=== PATIENT | female | born 1940 | race Caucasian/White ===

== ENCOUNTER 2020-08-01 02:04 | Inpatient (IN) | payer MEDICARE, OTHER ==
[2020-08-01] VITALS (10 sets, daily range): BP systolic 110–171; BP diastolic 50–79
[~2020-08-01] VITALS: Ht 175.3 cm; Wt 64.1 kg
[~2020-08-01 02:04] MED LIST: ALPR0.25 PO; AMLO10TA4 PO; ATOR10TA PO; LEVE100020 PO; PHEN100C PO; PROP80CA3 PO
--- NOTE | 2020-08-01 02:28 | ED.ADGEN ---
Past Medical History Past Medical History: Hypertension, Seizure Past Surgical History: No Surgical History Smoking Status: Never Smoker Alcohol Use: None Drug Use: None General Adult EDM: Chief Complaint: TRAUMA ALERT HPI: HPI: Patient is a 79-year-old female who presents to the emergency room after a fall. Patient fell over her end table due to slipping on her socks. She denies any syncope. She denies hitting her head. She denies losing consciousness or neck pain. She is complaining of mild for out of 10 elbow pain on the left. She denies any other pain. She has been able to move her fingers but is unable to move her elbow. She denies any numbness in her hand. Review of Systems: Review of Systems: Complete ROS is negative unless otherwise documented in HPI Allergies: Allergies: Allergies Coded Allergies Type Severity Reaction Last Updated Verified No Known Drug Allergies 10/11/14 No Physical Exam: PE: General: Awake, alert, NAD. Well Nourished, well hydrated. Cooperative HEENT: Atraumatic, EOMI, PERRL, airway patent, moist oral mucosa, no nasal septal hematoma, no facial crepitus or deformity Neck: Supple, trachea midline, no C-spine tenderness Respiratory: CTA bilaterally, normal effort, no wheezing/crackles, no crepitus CV: RRR, no murmur, cap refill <2, 2+ bilateral radial/DP pulses GI: Soft, nondistended, nontender, no masses MSK: Obvious deformity to left upper arm, pelvis stable and nontender Skin: Warm, dry, intact Neuro: A&O x3, speech NL, sensory and motor grossly intact, no focal deficits Psych: Normal affect, normal mood, not suicidal or homicidal Current Patient Data: Labs: Laboratory Tests Test 08/01/20 04:00 White Blood Count 9.7 x10^3/uL (4.0-11.0) Red Blood Count 3.30 x10^6/uL (3.50-5.40) L Hemoglobin 10.1 g/dL (12.0-15.5) L Hematocrit 30.4 % (36.0-47.0) L Mean Corpuscular Volume 92 fL (79-100) Mean Corpuscular Hemoglobin 31 pg (25-35) Mean Corpuscular Hemoglobin Concent 33 g/dL (31-37) Red Cell Distribution Width 14.6 % (11.5-14.5) H Platelet Count 278 x10^3/uL (140-400) Neutrophils (%) (Auto) 77 % (31-73) H Lymphocytes (%) (Auto) 10 % (24-48) L Monocytes (%) (Auto) 11 % (0-9) H Eosinophils (%) (Auto) 1 % (0-3) Basophils (%) (Auto) 0 % (0-3) Neutrophils # (Auto) 7.5 x10^3/uL (1.8-7.7) Lymphocytes # (Auto) 0.9 x10^3/uL (1.0-4.8) L Monocytes # (Auto) 1.1 x10^3/uL (0.0-1.1) Eosinophils # (Auto) 0.1 x10^3/uL (0.0-0.7) Basophils # (Auto) 0.0 x10^3/uL (0.0-0.2) Sodium Level 140 mmol/L (136-145) Potassium Level 3.8 mmol/L (3.5-5.1) Chloride Level 107 mmol/L (98-107) Carbon Dioxide Level 25 mmol/L (21-32) Anion Gap 8 (6-14) Blood Urea Nitrogen 16 mg/dL (7-20) Creatinine 0.9 mg/dL (0.6-1.0) Estimated GFR (Cockcroft-Gault) 60.4 Glucose Level 79 mg/dL (70-99) Calcium Level 8.9 mg/dL (8.5-10.1) Iron Level 41 ug/dL (50-170) L Total Iron Binding Capacity 232 ug/dL (250-450) L Iron Saturation 18 % (15-34) Thyroid Stimulating Hormone (TSH) 2.134 uIU/mL (0.358-3.74) SARS-CoV-2 Antigen (Rapid) Negative (NEGATIVE) Laboratory Tests 08/01/20 04:00 Laboratory Tests 08/01/20 04:00 Vital Signs: Vital Signs Date Time Temp Pulse Resp B/P (MAP) Pulse Ox O2 Delivery O2 Flow Rate FiO2 08/01/20 05:42 68 16 133/60 (84) 100 Nasal Cannula 2.0 08/01/20 02:16 98.0 98.0 EKG: EKG: [] Heart Score: Risk Factors: Risk Factors: DM, Current or recent (<one month) smoker, HTN, HLP, family history of CAD, obesity. Risk Scores: Score 0 - 3: 2.5% MACE over next 6 weeks - Discharge Home Score 4 - 6: 20.3% MACE over next 6 weeks - Admit for Clinical Observation Score 7 - 10: 72.7% MACE over next 6 weeks - Early Invasive Strategies Radiology/Procedures: Radiology/Procedures: [] Course & Med Decision Making: Course & Med Decision Making Pertinent Labs and Imaging studies reviewed. (See chart for details) Patient is a 79-year-old female who presents to the emergency room after a fall from standing. She has an obvious deformity to her left upper arm. She denies any other injuries. Patient discussed with Dr. Love the on-call orthopedic surgeon. A rapid Covid swab was done and patient will be admitted for surgery. Dragon Disclaimer: Dragon Disclaimer: This electronic medical record was generated, in whole or in part, using a voice recognition dictation system. Departure Departure Impression: Primary Impression: Fall Additional Impression: Humerus distal fracture Disposition: ADMITTED INPT THIS HOSP Condition: STABLE Referrals: ZUNILDA CORNELIUS MD (PCP) Problem Qualifiers ALBERTO NINA MD Aug 01, 2020 02:28
--- NOTE | 2020-08-01 03:02 | RAD ---
INDICATION: Arm pain COMPARISON: Chest x-ray from October 2019 IMPRESSION: Left humerus: 5 views obtained. There is an acute left distal humerus fracture with approximately one shaft width lateral displacement with apex lateral angulation and mild overriding of the fracture si te. At the partially visualized left lung there is interstitial opacities as well as a more focal nod ular opacity at the left lung base. The interstitial opacities are partially chronic in nature but ap pear increased from prior which could be from superimposed interstitial infiltrate or mild pulmonary vascular congestion. The nodular opacity at the left lung base could be infectious or inflammatory bu t a follow-up will be needed to ensure that this decreases in severity to exclude neoplastic causes. This was not apparent on prior. Electronically signed by: Janusz Bonilla MD (08/01/2020 2:59 AM) [id number]
[2020-08-01 04:23] LABS: BASO % 0 % (0-3); EOS # 0.1 x10^3/uL (0.0-0.7); EOS % 1 % (0-3); HEMATOCRIT 30.4 % (36.0-47.0); HEMOGLOBIN 10.1 g/dL (12.0-15.5); LYMPH # 0.9 x10^3/uL (1.0-4.8); LYMPH % 10 % (24-48); MEAN CORPUSCULAR HEMOGLOBIN 31 pg (25-35); MEAN CORPUSCULAR HGB CONC 33 g/dL (31-37); MEAN CORPUSCULAR VOLUME 92 fL (79-100); MONO # 1.1 x10^3/uL (0.0-1.1); MONO % 11 % (0-9); NEUT # 7.5 x10^3/uL (1.8-7.7); NEUT % 77 % (31-73); PLATELET COUNT 278 x10^3/uL (140-400); RED CELL DISTRIBUTION WIDTH 14.6 % (11.5-14.5); WHITE BLOOD COUNT 9.7 x10^3/uL (4.0-11.0)
[2020-08-01 04:32] LABS: CALCIUM 8.9 mg/dL (8.5-10.1); CREATININE 0.9 mg/dL (0.6-1.0); GFR 60.4; POTASSIUM 3.8 mmol/L (3.5-5.1)
--- NOTE | 2020-08-01 07:21 | PDOC1 ---
History and Physical Date of Admission Date of Admission DATE: 08/01/20 TIME: 07:17 Identification/Chief Complaint Chief Complaint Fall Source Source: Patient History of Present Illness History of Present Illness Ms Mckinley is a 79-year-old female w/ PMHx Hypertension, Seizures who presents to the emergency room after a fall at her SNF, [facility]. Patient fell over her end table due to slipping on her socks at the carpet transition. She denies any syncope. She denies hitting her head. She denies losing consciousness or neck pain. She was complaining of mild 4/10 elbow pain on the left which resolved with pain medication and immobilization. She denies any other pain. She has been able to move her fingers but is unable to move her elbow. She denies any numbness in her hand. She was diagnosed with COVID 19 on 07/12/2020 at [facility]. On radiograph found with acute left distal humerus fracture with approximately one shaft width lateral displacement with apex lateral angulation and mild overriding of the fracture site. Also notable are interstitial opacities as well as a more focal nodular opacity at the left lung base. Labs with WBC 9.7, Hb 10.1, platelets 278, NA 140, K3.8, BUN 16, CR 0.9, glucose 129. Due to ED physician concern for close proximity of bone scan in ED splinting was not performed and there awaiting orthopedic surgery evaluation for further care. Patient of note says she would not like to have surgery to correct this if there is something more conservative she would prefer this. Admitted for pain control and further care. Past Medical History Cardiovascular: HTN CENTRAL NERVOUS SYSTEM: Seizure GI: No pertinent hx Heme/Onc: No pertinent hx Hepatobiliary: No pertinent hx Psych: No pertinent hx Musculoskeletal: Osteoarthritis Rheumatologic: No pertinent hx Infectious disease: No pertinent hx Renal/: No pertinent hx Endocrine: No pertinent hx Past Surgical History Past Surgical History: Tonsillectomy Family History Family History: Hypertension Social History Smoke: No ALCOHOL: none Drugs: None Current Problem List Problem List Problems Medical Problems: (1) Fall Status: Acute Current Medications Current Medications Active Scripts Active Xanax (Alprazolam) 0.25 Mg Tablet 0.25 Mg PO TID PRN PRN Lipitor (Atorvastatin Calcium) 10 Mg Tablet 1 Tab PO QHS Norvasc (Amlodipine Besylate) 10 Mg Tablet 5 Mg PO DAILY PRN Reported Keppra (Levetiracetam) 1,000 Mg Tablet 1 Tab PO BID Dilantin (Phenytoin Sodium Extended) 100 Mg Capsule 300 Mg PO HS Allergies Allergies: Coded Allergies: No Known Drug Allergies (Unverified , 10/11/14) ROS General: YES: Fatigue, Malaise; No: Chills, Night Sweats, Appetite, Other PSYCHOLOGICAL ROS: No: Anxiety, Behavioral Disorder, Concentration difficultie, Decreased libido, Depression, Disorientation, Hallucinations, Hostility, Irritablity, Memory difficulties, Mood Swings, Obsessive thoughts, Physical abuse, Sexual abuse, Sleep disturbances, Suicidal ideation, Other Eyes: No Blurry vision, No Decreased vision, No Double vision, No Dry eyes, No Excessive tearing, No Eye Pain, No Itchy Eyes, No Loss of vision, No Photophobia, No Scotomata, No Uses contacts, No Uses glasses, No Other HEENT: No: Heacaches, Visual Changes, Hearing change, Nasal congestion, Nasal discharge, Oral lesions, Sinus pain, Sore Throat, Epistaxis, Sneezing, Snoring, Tinnitus, Vertigo, Vocal changes, Other ALLERGY AND IMMUNOLOGY: No: Hives, Insect Bite Sensitivity, Itchy/Watery Eyes, Nasal Congestion, Post Nasal Drip, Seasonal Allergies, Other Hematological and Lymphatic: No: Bleeding Problems, Blood Clots, Blood Transfusions, Brusing, Night Sweats, Pallor, Swollen Lymph Nodes, Other ENDOCRINE: No: Breast Changes, Galactorrhea, Hair Pattern Changes, Hot Flashes, Malaise/lethargy, Mood Swings, Palpitations, Polydipsia/polyuria, Skin Changes, Temperature Intolerance, Unexpected Weight Changes, Other Breast: No New/Changing Breast Lumps, No Nipple changes, No Nipple discharge, No Other Respiratory: YES: Cough, Shortness of breath; No: Hemoptysis, Orthopnea, Pleuritic Pain, SOB with excertion, Sputum Changes, Stridor, Tachypnea, Wheezing, Other Cardiovascular: No Chest Pain, No Palpitations, No Orthopnea, No Paroxysmal Noc. Dyspnea, No Edema, No Lt Headedness, No Other Gastrointestinal: No Nausea, No Vomiting, No Abdominal Pain, No Diarrhea, No Constipation, No Melena, No Hematochezia, No Other Genitourinary: No Dysuria, No Frequency, No Incontinence, No Hematuria, No Retention, No Discharge, No Urgency, No Pain, No Flank Pain, No Other, No , No , No , No , No , No , No Musculoskeletal: No Gait Disturbance, No Joint Pain, No Joint Stiffness, No Joint Swelling, No Muscle Pain, No Muscular Weakness, No Pain In:, No Swelling In:, No Other Neurological: No Behavorial Changes, No Bowel/Bladder ControlChng, No Confusion, No Dizziness, No Gait Disturbance, No Headaches, No Impaired Coord/balance, No Memory Loss, No Numbness/Tingling, No Seizures, No Speech Problems, No Tremors, No Visual Changes, No Weakness, No Other Skin: No Dry Skin, No Eczema, No Hair Changes, No Lumps, No Mole Changes, No Mottling, No Nail Changes, No Pruritus, No Rash, No Skin Lesion Changes, No Other, No Acne Physical Exam General: Alert, Oriented X3, Cooperative, mild distress HEENT: Atraumatic, PERRLA, EOMI, Mucous membr. moist/pink Lungs: Normal air movement, Other (Bibasilar crackles) Heart: S1S2, RRR, no thrills, no rubs, no gallops, no murmurs Abdomen: Normal bowel sounds, Soft, No tenderness, No hepatosplenomegaly, No masses Rectal Exam: not examined Extremities: No clubbing, No cyanosis, No edema, Normal pulses, Other (left upper arm tender) Skin: No rashes, No breakdown, No significant lesion Neuro: Normal gait, Normal speech, Strength at 5/5 X4 ext, Normal tone, Sensation intact, Cranial nerves 3-12 NL, Reflexes 2+ Psych/Mental Status: Mental status NL, Mood NL Vitals Vitals Vital Signs Date Time Temp Pulse Resp B/P (MAP) Pulse Ox O2 Delivery O2 Flow Rate FiO2 08/01/20 06:42 68 15 108/58 (75) 99 Nasal Cannula 2.0 08/01/20 02:16 98.0 98.0 Labs Labs Laboratory Tests Test 08/01/20 04:00 White Blood Count 9.7 x10^3/uL (4.0-11.0) Red Blood Count 3.30 x10^6/uL (3.50-5.40) Hemoglobin 10.1 g/dL (12.0-15.5) Hematocrit 30.4 % (36.0-47.0) Mean Corpuscular Volume 92 fL (79-100) Mean Corpuscular Hemoglobin 31 pg (25-35) Mean Corpuscular Hemoglobin Concent 33 g/dL (31-37) Red Cell Distribution Width 14.6 % (11.5-14.5) Platelet Count 278 x10^3/uL (140-400) Neutrophils (%) (Auto) 77 % (31-73) Lymphocytes (%) (Auto) 10 % (24-48) Monocytes (%) (Auto) 11 % (0-9) Eosinophils (%) (Auto) 1 % (0-3) Basophils (%) (Auto) 0 % (0-3) Neutrophils # (Auto) 7.5 x10^3/uL (1.8-7.7) Lymphocytes # (Auto) 0.9 x10^3/uL (1.0-4.8) Monocytes # (Auto) 1.1 x10^3/uL (0.0-1.1) Eosinophils # (Auto) 0.1 x10^3/uL (0.0-0.7) Basophils # (Auto) 0.0 x10^3/uL (0.0-0.2) Sodium Level 140 mmol/L (136-145) Potassium Level 3.8 mmol/L (3.5-5.1) Chloride Level 107 mmol/L (98-107) Carbon Dioxide Level 25 mmol/L (21-32) Anion Gap 8 (6-14) Blood Urea Nitrogen 16 mg/dL (7-20) Creatinine 0.9 mg/dL (0.6-1.0) Estimated GFR (Cockcroft-Gault) 60.4 Glucose Level 79 mg/dL (70-99) Calcium Level 8.9 mg/dL (8.5-10.1) SARS-CoV-2 Antigen (Rapid) Negative (NEGATIVE) Laboratory Tests Test 08/01/20 04:00 White Blood Count 9.7 x10^3/uL (4.0-11.0) Red Blood Count 3.30 x10^6/uL (3.50-5.40) Hemoglobin 10.1 g/dL (12.0-15.5) Hematocrit 30.4 % (36.0-47.0) Mean Corpuscular Volume 92 fL (79-100) Mean Corpuscular Hemoglobin 31 pg (25-35) Mean Corpuscular Hemoglobin Concent 33 g/dL (31-37) Red Cell Distribution Width 14.6 % (11.5-14.5) Platelet Count 278 x10^3/uL (140-400) Neutrophils (%) (Auto) 77 % (31-73) Lymphocytes (%) (Auto) 10 % (24-48) Monocytes (%) (Auto) 11 % (0-9) Eosinophils (%) (Auto) 1 % (0-3) Basophils (%) (Auto) 0 % (0-3) Neutrophils # (Auto) 7.5 x10^3/uL (1.8-7.7) Lymphocytes # (Auto) 0.9 x10^3/uL (1.0-4.8) Monocytes # (Auto) 1.1 x10^3/uL (0.0-1.1) Eosinophils # (Auto) 0.1 x10^3/uL (0.0-0.7) Basophils # (Auto) 0.0 x10^3/uL (0.0-0.2) Sodium Level 140 mmol/L (136-145) Potassium Level 3.8 mmol/L (3.5-5.1) Chloride Level 107 mmol/L (98-107) Carbon Dioxide Level 25 mmol/L (21-32) Anion Gap 8 (6-14) Blood Urea Nitrogen 16 mg/dL (7-20) Creatinine 0.9 mg/dL (0.6-1.0) Estimated GFR (Cockcroft-Gault) 60.4 Glucose Level 79 mg/dL (70-99) Calcium Level 8.9 mg/dL (8.5-10.1) SARS-CoV-2 Antigen (Rapid) Negative (NEGATIVE) Images Images Left humerus Radiograph: 5 views obtained. There is an acute left distal humerus fracture with approximately one shaft width lateral displacement with apex lateral angulation and mild overriding of the fracture site. At the partially visualized left lung there is interstitial opacities as well as a more focal nodular opacity at the left lung base. The interstitial opacities are partially chronic in nature but appear increased from prior which could be from superimposed interstitial infiltrate or mild pulmonary vascular congestion. The nodular opacity at the left lung base could be infectious or inflammatory but a follow-up will be needed to ensure that this decreases in severity to exclude neoplastic causes. This was not apparent on prior. VTE Prophylaxis Ordered VTE Prophylaxis Devices: Yes VTE Pharmacological Prophylaxi: Yes Assessment/Plan Assessment/Plan A/P: Fall - sounds accidental, no LOC. PT for gait assessment Left humerus fracture - pain control. Ortho consulted. Patient does not consent to surgery, would prefer splinting and conservative measures if possible COVID 19 - diagnosed 20 days ago. Does not currently require oxygen. Imaging consistent with likely infection vs recovery phase. Hypertension - cont home amlodipine Seizures - managed on dilantin and keppra. Follows with Dr. Keen. No recent seizures in the past several years Anemia - likely of chronic disease, will check iron studies, TSH FEN - NPO PPX - SCDs FULL CODE Dispo - inpatient Justifications for Admission Other Justification JOSE GUADALUPE PETIT MD Aug 01, 2020 07:21
[2020-08-01] MEDS ORDERED: fentaNYL PF VIAL 100 MCG/2 ML VIAL IVP PRN ×3 (08:00→16:00)
[2020-08-01] MEDS ORDERED: ONDANSETRON PF 4 MG/2 ML VIAL. IVP PRN ×2 (08:00→16:00)
[2020-08-01] MEDS: IV NORMAL SALINE 1000ML BAG 1,000 ML IV SCH ×2 (08:59→17:03)
[2020-08-01] MEDS ORDERED: IV RINGERS,LACTATED 1000ML 1,000 ML IV SCH (09:00)
[2020-08-01] MEDS ORDERED: MORPHINE SULFATE 2 MG/ML VIAL. IV PRN (09:00)
[2020-08-01] MEDS ORDERED: ONDANSETRON PF 4 MG/2 ML VIAL. IV PRN (09:00)
[2020-08-01] MEDS ORDERED: fentaNYL PF VIAL 100 MCG/2 ML VIAL IV PRN ×2 (09:00)
[2020-08-01] MEDS ORDERED: LIDOCAINE 1% PF 2 ML VIAL. ID PRN (09:00)
[2020-08-01] MEDS ORDERED: PROCHLORPERAZINE 10 MG/2 ML VIAL. IV PRN (09:00)
[2020-08-01] MEDS ORDERED: HYDROmorphone 2 MG/ML VIAL IV PRN (09:00)
[2020-08-01] MEDS ORDERED: BUPIVACAINE-EPI 0.25%-1:200000 MPF 30 ML VIAL. INJ ONE (12:15)
[2020-08-01] MEDS ORDERED: ceFAZolin SODIUM IV Push 1 GM VIAL. IVP ONE (13:08)
[2020-08-01] MEDS ORDERED: fentaNYL PF VIAL 100 MCG/2 ML VIAL ONE ×3 (13:15→15:20)
[2020-08-01] MEDS ORDERED: DEXAMETHASONE SOD PHOS 4 MG/ML VIAL ONE (13:32)
[2020-08-01] MEDS ORDERED: LIDOCAINE 2% PF 5 ML VIAL. ONE (13:32)
[2020-08-01] MEDS ORDERED: PHENYLEPHRINE in 0.9% NACL PF 1 MG/10 ML SYRINGE. IV ONE (13:32)
[2020-08-01] MEDS ORDERED: PROPOFOL 10 MG/ML (20ML) VIAL. IV ONE (13:32)
[2020-08-01] MEDS ORDERED: ONDANSETRON PF 4 MG/2 ML VIAL. ONE (13:32)
[2020-08-01] MEDS ORDERED: SEVOFLURANE 61 TO 120 MINUTES. IH ONE (13:33)
[2020-08-01] MEDS ORDERED: VANCOMYCIN 1 GM VIAL. ONE (14:55)
--- NOTE | 2020-08-01 15:51 | PDOC4 ---
Operative Note Operative Note Date of Procedure: August 01, 2020 Pre-Op Diagnosis: Displaced spiral fracture of shaft of humerus, left arm, initial encounter for closed fracture S42.342A Post-Op Diagnosis: Same Procedure: Open treatment of left humeral shaft fracture with plate/screws, CPT 41820 Surgeon: Sofya Brooks MD Anesthesia: Healthcare Science Specialist: NICOLAS Del Rosario EBL: 100 mL Specimens Obtained: none Complications: none Drains: none Tourniquet time: 62 minutes Indications for Procedure: The patient is a 79-year-old with a spiral fracture of the left distal humeral shaft which is displaced and unstable. The patient and I and her DPOA discussed the risks, benefits and alternatives of surgery. I recommended internal fixation. We discussed the potential risks of radial nerve injury, numbness, weakness, malunion or nonunion, need for further surgery, bleeding, scarring, infection, or other potential surgical or anesthetic comp lications. We discussed possible nonoperative treatment but I do recommend surgery for this fracture and he agrees. The patient and her DPOA stated understanding of the risks benefits and alternatives. A written consent was obtained. Procedure in Detail: The patient was identified in the preoperative holding area. The correct left upper extremity was marked by me. The patient was taken to the operating room where general anesthesia was used. The patient was positioned supine on the operating table. Preoperative antibiotics were given intravenously. A timeout procedure was performed. The limb was prepared in sterile fashion with surgical prep solution. Sterile drapes were applied. The lower part of the arm was covered with an impervious stockinette and Coban. A sterile tourniquet was applied. The limb was exsanguinated with an Esmarch bandage, and the tourniquet inflated to 275 mmHg. A modified anterolateral approach to the distal humeral shaft was employed. Sharp dissection was used through the skin with a scalpel, and then careful Metzenbaum scissor dissection was performed, with care made not to injure the radial nerve or the lateral antebrachial cutaneous nerve. The intermuscular septum was located distally, and dissected proximally. The radial nerve was identified, carefully dissected and mobilized, and protected throughout the surgery with a vessel loop. It was well mobilized to prevent radial nerve injury during reduction and fixation. The sharp fracture edges were quite close to the nerve but no apparent nerve injury had occurred. The interval between the brachioradialis and biceps was employed. Electrocautery was used for hemostasis. Care was made not to injure the radial nerve or the lateral antebrachial cutaneous nerve. The fracture was identified and was markedly displaced. Fracture hematoma was cleared with curettes, rongeurs, and irrigation. Careful subperiosteal dissection was used up the humerus. The fracture was held reduced with several bone clamps. Interfragmentary lag screw fixation was placed, with secure fixation of three screws. The reduction appeared anatomic. The large image intensifier was used to confirm the reduction. The image intensifier was used throughout the procedure, and all the images were interpreted intraoperatively by me. I applied a Synthes 4.5 mm stainless steel plate. A screw was placed to secure the plate to the bone. The image intensifier was used to confirm that satisfactory length of the plate and that the plate position was satisfactory. Additional screws were placed distally and proximally. Excellent rigid fixation was obtained. Final images were taken with the image intensifier. Satisfactory reduction and fixation was obtained. Copious saline irrigation was used. Outer gloves were changed. The tourniquet was released. Bovie electrocautery was used for hemostasis. 1 g of powdered vancomycin was placed in the deep wound. The fascia was repaired with 0 Vicryl [id number] sutures. My environmental emergencies assistant repaired the subcutaneous tissues with 2-0 Vicryl, and reapproximated the skin with stuart. Local anesthetic 30 mL of 0.25% bupivacaine with epinephrine was injected into the skin edges. Xeroform and a sterile dressing were applied. A posterior splint was applied. Needle and sponge counts were correct. There were no apparent complications. SOFYA BROOKS MD Aug 01, 2020 15:51
--- NOTE | 2020-08-01 15:56 | PDOC2 ---
CONSULT Date of Consult Date of Consult DATE: 08/01/20 TIME: 15:54 Reason for Consult Reason for Consult: Humeral shaft fracture Identification/Chief Complaint Chief Complaint Left humeral shaft fracture Source Source: Caregiver, Chart review, Patient History of Present Illness Reason for Visit: Late entry, the patient was seen this morning, and I recommended surgery. This patient is a 79-year-old woman who lives at home with her . She has some memory issues and her son is the MASOUD. She is right-handed. She was doing some housework and fell fracturing the humerus. X-rays showed a displaced humeral shaft fracture in the emergency room noted that the skin was tented by the sharp distal fragment but the fracture was not open. I spoke to the patient in detail about the risks benefits and alternatives of surgery. The fracture is markedly angulated and is tenting the skin and so in this case even with an isolated humeral shaft fracture I did recommend surgery. I explained my reasoning to the patient and to her son the MASOUD by phone. Past Medical History Cardiovascular: HTN CENTRAL NERVOUS SYSTEM: Seizure GI: No pertinent hx Heme/Onc: No pertinent hx Hepatobiliary: No pertinent hx Psych: No pertinent hx Musculoskeletal: Osteoarthritis Rheumatologic: No pertinent hx Infectious disease: No pertinent hx Renal/: No pertinent hx Endocrine: No pertinent hx Past Surgical History Past Surgical History: Tonsillectomy Family History Family History: Hypertension Social History No ALCOHOL: none Drugs: None Lives: with Family Current Problem List Problem List Problems Medical Problems: (1) Fall Status: Acute Current Medications Current Medications Current Medications Sodium Chloride 1,000 ml @ 100 mls/hr Q10H IV Last administered on 08/01/20at 08:59; Start 08/01/20 at 08:00 Fentanyl Citrate (Fentanyl 2ml Vial) 25 mcg PRN Q2HR PRN IVP PAIN; Start 08/01/20 at 08:00 Fentanyl Citrate (Fentanyl 2ml Vial) 50 mcg PRN Q2HR PRN IVP PAIN; Start 08/01/20 at 08:00 Ondansetron HCl (Zofran) 4 mg PRN Q6HRS PRN IVP NAUSEA/VOMITING; Start 08/01/20 at 08:00 Ondansetron HCl (Zofran) 4 mg PRN Q6HRS PRN IV NAUSEA/VOMITING; Start 08/01/20 at 09:00; Stop 08/01/20 at 18:00 Fentanyl Citrate (Fentanyl 2ml Vial) 25 mcg PRN Q5MIN PRN IV MILD PAIN 1-3 Last administered on 08/01/20at 09:00; Start 08/01/20 at 09:00; Stop 08/01/20 at 18:00 Fentanyl Citrate (Fentanyl 2ml Vial) 50 mcg PRN Q5MIN PRN IV MODERATE TO SEVERE PAIN Last administered on 08/01/20at 15:47; Start 08/01/20 at 09:00; Stop 08/01/20 at 18:00 Morphine Sulfate (Morphine Sulfate) 1 mg PRN Q10MIN PRN IV SEVERE PAIN 7-10; Start 08/01/20 at 09:00; Stop 08/01/20 at 18:00 Ringer's Solution 1,000 ml @ 30 mls/hr Q24H IV ; Start 08/01/20 at 09:00; Stop 08/01/20 at 20:59 Lidocaine HCl (Xylocaine-Mpf 1% 2ml Vial) 2 ml PRN 1X PRN ID PRIOR TO IV START; Start 08/01/20 at 09:00; Stop 08/01/20 at 15:00; Status DC Hydromorphone HCl (Dilaudid) 0.5 mg PRN Q10MIN PRN IV SEV PAIN, Second choice; Start 08/01/20 at 09:00; Stop 08/01/20 at 18:00 Prochlorperazine Edisylate (Compazine) 5 mg PACU PRN PRN IV NAUSEA, MRX1; Start 08/01/20 at 09:00; Stop 08/01/20 at 18:00 Amlodipine Besylate (Norvasc) 5 mg DAILY PO ; Start 08/01/20 at 12:00 Atorvastatin Calcium (Lipitor) 10 mg QHS PO ; Start 08/01/20 at 21:00 Phenytoin Sodium (Dilantin) 300 mg HS PO ; Start 08/01/20 at 21:00 Levetiracetam (Keppra) 1,000 mg BID PO ; Start 08/01/20 at 12:00 Psyllium Hydrophilic Mucilloid (Metamucil Fiber Packet) 1 pkt QHS PO ; Start 08/01/20 at 21:00 Bupivacaine HCl/ Epinephrine Bitart (Sensorcaine-Epi 0.25%-1:028398 Mpf) 30 ml 1X ONCE INJ Last administered on 08/01/20at 14:08; Start 08/01/20 at 12:15; Stop 08/01/20 at 12:16; Status DC Cefazolin Sodium (Ancef) 1 gm STK-MED ONCE IVP ; Start 08/01/20 at 13:08; Stop 08/01/20 at 13:08; Status DC Fentanyl Citrate (Fentanyl 2ml Vial) 100 mcg STK-MED ONCE .ROUTE ; Start 08/01/20 at 13:15; Stop 08/01/20 at 13:15; Status DC Propofol (Diprivan) 200 mg STK-MED ONCE IV ; Start 08/01/20 at 13:32; Stop 08/01/20 at 13:32; Status DC Lidocaine HCl (Lidocaine Pf 2% Vial) 5 ml STK-MED ONCE .ROUTE ; Start 08/01/20 at 13:32; Stop 08/01/20 at 13:32; Status DC Dexamethasone Sodium Phosphate (Decadron) 4 mg STK-MED ONCE .ROUTE ; Start 08/01/20 at 13:32; Stop 08/01/20 at 13:32; Status DC Ondansetron HCl (Zofran) 4 mg STK-MED ONCE .ROUTE ; Start 08/01/20 at 13:32; Stop 08/01/20 at 13:32; Status DC Phenylephrine HCl (PHENYLEPHRINE in 0.9% NACL PF) 1 mg STK-MED ONCE IV ; Start 08/01/20 at 13:32; Stop 08/01/20 at 13:32; Status DC Ephedrine Sulfate (Akovaz) 50 mg STK-MED ONCE .ROUTE ; Start 08/01/20 at 13:32; Stop 08/01/20 at 13:32; Status DC Sevoflurane (Ultane) 60 ml STK-MED ONCE IH ; Start 08/01/20 at 13:33; Stop 08/01/20 at 13:33; Status DC Fentanyl Citrate (Fentanyl 2ml Vial) 100 mcg STK-MED ONCE .ROUTE ; Start 08/01/20 at 14:09; Stop 08/01/20 at 14:09; Status DC Vancomycin HCl (Vancomycin) 1 gm STK-MED ONCE .ROUTE Last administered on 08/01/20at 15:04; Start 08/01/20 at 14:55; Stop 08/01/20 at 14:56; Status DC Fentanyl Citrate (Fentanyl 2ml Vial) 100 mcg STK-MED ONCE .ROUTE ; Start 08/01/20 at 15:20; Stop 08/01/20 at 15:21; Status DC Active Scripts Active Xanax (Alprazolam) 0.25 Mg Tablet 0.25 Mg PO TID PRN PRN Lipitor (Atorvastatin Calcium) 10 Mg Tablet 1 Tab PO QHS Norvasc (Amlodipine Besylate) 10 Mg Tablet 5 Mg PO DAILY PRN Reported Keppra (Levetiracetam) 1,000 Mg Tablet 1 Tab PO BID Dilantin (Phenytoin Sodium Extended) 100 Mg Capsule 300 Mg PO HS Allergies Allergies: Coded Allergies: No Known Drug Allergies (Unverified , 10/11/14) ROS Review of System General: YES: Fatigue, Malaise; No: Chills, Night Sweats, Appetite, Other PSYCHOLOGICAL ROS: No: Anxiety, Behavioral Disorder, Concentration difficultie, Decreased libido, Depression, Disorientation, Hallucinations, Hostility, Irritablity, Memory difficulties, Mood Swings, Obsessive thoughts, Physical abu se, Sexual abuse, Sleep disturbances, Suicidal ideation, Other Eyes: No Blurry vision, No Decreased vision, No Double vision, No Dry eyes, No Excessive tearing, No Eye Pain, No Itchy Eyes, No Loss of vision, No Photophobia, No Scotomata, No Uses contacts, No Uses glasses, No Other HEENT: No: Heacaches, Visual Changes, Hearing change, Nasal congestion, Nasal discharge, Oral lesions, Sinus pain, Sore Throat, Epistaxis, Sneezing, Snoring, Tinnitus, Vertigo, Vocal changes, Other ALLERGY AND IMMUNOLOGY: No: Hives, Insect Bite Sensitivity, Itchy/Watery Eyes, Nasal Congestion, Post Nasal Drip, Seasonal Allergies, Other Hematological and Lymphatic: No: Bleeding Problems, Blood Clots, Blood Transfusions, Brusing, Night Sweats, Pallor, Swollen Lymph Nodes, Other ENDOCRINE: No: Breast Changes, Galactorrhea, Hair Pattern Changes, Hot Flashes, Malaise/lethargy, Mood Swings, Palpitations, Polydipsia/polyuria, Skin Changes, Temperature Intolerance, Unexpected Weight Changes, Other Breast: No New/Changing Breast Lumps, No Nipple changes, No Nipple discharge, No Other Respiratory: YES: Cough, Shortness of breath; No: Hemoptysis, Orthopnea, Pleuritic Pain, SOB with excertion, Sputum Changes, Stridor, Tachypnea, Wheezing, Other Cardiovascular: No Chest Pain, No Palpitations, No Orthopnea, No Paroxysmal Noc. Dyspnea, No Edema, No Lt Headedness, No Other Gastrointestinal: No Nausea, No Vomiting, No Abdominal Pain, No Diarrhea, No Constipation, No Melena, No Hematochezia, No Other Genitourinary: No Dysuria, No Frequency, No Incontinence, No Hematuria, No Retention, No Discharge, No Urgency, No Pain, No Flank Pain, No Other, No , No , No , No , No , No , No Musculoskeletal: No Gait Disturbance, No Joint Pain, No Joint Stiffness, No Joint Swelling, No Muscle Pain, No Muscular Weakness, No Pain In:, No Swelling In:, No Other Neurological: No Behavorial Changes, No Bowel/Bladder ControlChng, No Confusion, No Dizziness, No Gait Disturbance, No Headaches, No Impaired Coord/balance, No Memory Loss, No Numbness/Tingling, No Seizures, No Speech Problems, No Tremors, No Visual Changes, No Weakness, No Other Skin: No Dry Skin, No Eczema, No Hair Changes, No Lumps, No Mole Changes, No Mottling, No Nail Changes, No Pruritus, No Rash, No Skin Lesion Changes, No Other, No Acne Physical Exam General: Alert, Cooperative HEENT: Atraumatic Lungs: Normal air movement Heart: Regular rate Abdomen: Soft Extremities: Other (The left humerus was in a sling. There is swelling and angular deformity on examination. There is tenting of the skin and I can palpate the sharp fracture edge beneath the skin with likely impending skin necrosis. She seems to have intact neurovascular function, and demonstrated sensory and motor function of the radial ulnar and median nerves within the limits of the pain and fracture.) Skin: No significant lesion Neuro: Normal speech, Sensation intact MUSCULOSKELETAL: Abnormal exam of left (Humerus and elbow as above) Vitals VITALS Vital Signs Date Time Temp Pulse Resp B/P (MAP) Pulse Ox O2 Delivery O2 Flow Rate FiO2 08/01/20 15:47 15 96 Nasal Cannula 3.0 08/01/20 15:40 98.1 102 142/56 98.1 Labs Labs Laboratory Tests Test 08/01/20 04:00 08/01/20 08:23 08/01/20 11:20 08/01/20 15:43 White Blood Count 9.7 x10^3/uL (4.0-11.0) Red Blood Count 3.30 x10^6/uL (3.50-5.40) Hemoglobin 10.1 g/dL (12.0-15.5) Hematocrit 30.4 % (36.0-47.0) Mean Corpuscular Volume 92 fL (79-100) Mean Corpuscular Hemoglobin 31 pg (25-35) Mean Corpuscular Hemoglobin Concent 33 g/dL (31-37) Red Cell Distribution Width 14.6 % (11.5-14.5) Platelet Count 278 x10^3/uL (140-400) Neutrophils (%) (Auto) 77 % (31-73) Lymphocytes (%) (Auto) 10 % (24-48) Monocytes (%) (Auto) 11 % (0-9) Eosinophils (%) (Auto) 1 % (0-3) Basophils (%) (Auto) 0 % (0-3) Neutrophils # (Auto) 7.5 x10^3/uL (1.8-7.7) Lymphocytes # (Auto) 0.9 x10^3/uL (1.0-4.8) Monocytes # (Auto) 1.1 x10^3/uL (0.0-1.1) Eosinophils # (Auto) 0.1 x10^3/uL (0.0-0.7) Basophils # (Auto) 0.0 x10^3/uL (0.0-0.2) Sodium Level 140 mmol/L (136-145) Potassium Level 3.8 mmol/L (3.5-5.1) Chloride Level 107 mmol/L (98-107) Carbon Dioxide Level 25 mmol/L (21-32) Anion Gap 8 (6-14) Blood Urea Nitrogen 16 mg/dL (7-20) Creatinine 0.9 mg/dL (0.6-1.0) Estimated GFR (Cockcroft-Gault) 60.4 Glucose Level 79 mg/dL (70-99) Calcium Level 8.9 mg/dL (8.5-10.1) Iron Level 41 ug/dL (50-170) Total Iron Binding Capacity 232 ug/dL (250-450) Iron Saturation 18 % (15-34) Thyroid Stimulating Hormone (TSH) 2.134 uIU/mL (0.358-3.74) SARS-CoV-2 Antigen (Rapid) Negative (NEGATIVE) Glucose (Fingerstick) 84 mg/dL (70-99) 76 mg/dL (70-99) 91 mg/dL (70-99) Laboratory Tests Test 08/01/20 04:00 08/01/20 08:23 08/01/20 11:20 08/01/20 15:43 White Blood Count 9.7 x10^3/uL (4.0-11.0) Red Blood Count 3.30 x10^6/uL (3.50-5.40) Hemoglobin 10.1 g/dL (12.0-15.5) Hematocrit 30.4 % (36.0-47.0) Mean Corpuscular Volume 92 fL (79-100) Mean Corpuscular Hemoglobin 31 pg (25-35) Mean Corpuscular Hemoglobin Concent 33 g/dL (31-37) Red Cell Distribution Width 14.6 % (11.5-14.5) Platelet Count 278 x10^3/uL (140-400) Neutrophils (%) (Auto) 77 % (31-73) Lymphocytes (%) (Auto) 10 % (24-48) Monocytes (%) (Auto) 11 % (0-9) Eosinophils (%) (Auto) 1 % (0-3) Basophils (%) (Auto) 0 % (0-3) Neutrophils # (Auto) 7.5 x10^3/uL (1.8-7.7) Lymphocytes # (Auto) 0.9 x10^3/uL (1.0-4.8) Monocytes # (Auto) 1.1 x10^3/uL (0.0-1.1) Eosinophils # (Auto) 0.1 x10^3/uL (0.0-0.7) Basophils # (Auto) 0.0 x10^3/uL (0.0-0.2) Sodium Level 140 mmol/L (136-145) Potassium Level 3.8 mmol/L (3.5-5.1) Chloride Level 107 mmol/L (98-107) Carbon Dioxide Level 25 mmol/L (21-32) Anion Gap 8 (6-14) Blood Urea Nitrogen 16 mg/dL (7-20) Creatinine 0.9 mg/dL (0.6-1.0) Estimated GFR (Cockcroft-Gault) 60.4 Glucose Level 79 mg/dL (70-99) Calcium Level 8.9 mg/dL (8.5-10.1) Iron Level 41 ug/dL (50-170) Total Iron Binding Capacity 232 ug/dL (250-450) Iron Saturation 18 % (15-34) Thyroid Stimulating Hormone (TSH) 2.134 uIU/mL (0.358-3.74) SARS-CoV-2 Antigen (Rapid) Negative (NEGATIVE) Glucose (Fingerstick) 84 mg/dL (70-99) 76 mg/dL (70-99) 91 mg/dL (70-99) Images Images Report reviewed and images independently reviewed. Bindu Rojelio type fracture. Marked displacement. The skin tenting can be seen radiographically. There is angulation of at more than 30 degrees of varus and more than 20 degrees anterior, measured radiographically using on-screen tools. [facility] [address] [place] [address] IMAGING REPORT Signed PATIENT: AFSHIN NICHOLSON ACCOUNT: [id number] : 1940 LOCATION: ER AGE: 79 SEX: F EXAM STATUS: PRE ER ORD. PHYSICIAN: ALBERTO NINA MD REASON: pain PROCEDURE: HUMERUS LEFT INDICATION: Arm pain COMPARISON: Chest x-ray from October 2019 IMPRESSION: Left humerus: 5 views obtained. There is an acute left distal humerus fracture with approximately one shaft width lateral displacement with apex lateral angulation and mild overriding of the fracture site. At the partially visualized left lung there is interstitial opacities as well as a more focal nodular opacity at the left lung base. The interstitial opacities are partially chronic in nature but appear increased from prior which could be from superimposed interstitial infiltrate or mild pulmonary vascular congestion. The nodular opacity at the left lung base could be infectious or inflammatory but a follow-up will be needed to ensure that this decreases in severity to exclude neoplastic causes. This was not apparent on prior. Electronically signed by: Patrick Patel MD (08/01/2020 2:59 AM) [id number] DICTATED and SIGNED BY: PATRICK PATEL MD DATE: 08/01/20 0256 Assessment/Plan Assessment/Plan Displaced spiral fracture of shaft of humerus, left arm, initial encounter for closed fracture S42.342A Due to the unacceptable angulation, and the skin tenting I do recommend surgery. The patient initially was not eager to proceed with surgery, however her son the DPOA was readily in agreement with surgery. She ultimately agreed wants her son was in agreement. We talked about the potential risks such as radial nerve injury which is unfortunately quite close to the spiral fragment and a Bindu Rojelio fracture. She does not seem to have radial nerve palsy currently and we will try to prevent any radial nerve injury during the exploration and repair. Nonoperative treatment would likely cause a stiff elbow, be difficult to tolerate, and I am afraid the the skin tenting would progress to ultimately an open fracture and I have seen this previously. That would require a more urgent type of necessary surgery, and certainly raises the risk of complications. It is my recommendation to proceed with surgery now to help him maintain elbow mo bility, and to improve the chances of rapid healing with a satisfactory alignment. She and her son stated understanding of the risks of infection, nerve injury, bleeding, hardware failure, malunion or nonunion, or other potential surgical or anesthetic complications. All of their questions were answered and they desire to proceed. Written consent was obtained. SOFYA DIALLO MD Aug 01, 2020 15:55
[2020-08-01] MEDS ORDERED: DEXTROSE 50% 25 GM / 50ML DISP.SYRIN. IV PRN (16:00)
[2020-08-01] MEDS ORDERED: ACETAMINOPHEN 325 MG TABLET. PO PRN (16:00)
[2020-08-01] MEDS ORDERED: POLYETHYLENE GLYCOL 3350 17 GM PACKET. PO PRN (16:00)
[2020-08-01] MEDS ORDERED: oxyCODONE/APAP 5/325 1 TAB TABLET PO PRN (16:15)
[2020-08-01] MEDS: IV 1/2 NORMAL SALINE 1,000 ML IV SCH (16:58)
[2020-08-01] MEDS: levETIRAcetam 500 MG TABLET PO SCH ×2 (16:58→21:18)
[2020-08-01] MEDS: SENNOSIDES/DOCUSATE 8.6/50MG TABLET. PO SCH (16:58)
[2020-08-01] MEDS: amLODIPine BESYLATE 5 MG TABLET PO SCH (16:58)
[2020-08-01] MEDS: PHENYTOIN SODIUM EXTENDED 100 MG CAPSULE PO SCH (21:17)
[2020-08-01] MEDS: ATORVASTATIN CALCIUM 10 MG TABLET. PO SCH (21:18)
[2020-08-01] MEDS: PSYLLIUM HUSK (SUGAR FREE) 1 PKT PACKET PO SCH (21:18)
--- NOTE | 2020-08-02 02:15 | RAD ---
EXAM: 6 images of the left humerus DATE: 08/01/2020 12:57 PM INDICATION: ORIF LEFT DISTAL HUMERUS COMPARISON: 08/01/2020 FINDINGS/ IMPRESSION: 6 very limited digital views of the left humerus submitted from the OR. Exam shows steps toward screw plate fixation of the left humeral fracture. Note, this does not constitute a diagnostic quality exa m. Please see operative report for full details. Fluoroscopy time: 0.5 minutes Electronically signed by: Mckay Epps MD (08/02/2020 2:10 AM) ETTA
[2020-08-02 03:00] VITALS: BP 115/60
[2020-08-02] MEDS: IV NORMAL SALINE 1000ML BAG 1,000 ML IV SCH ×3 (04:00→22:03)
[2020-08-02] MEDS: IV 1/2 NORMAL SALINE 1,000 ML IV SCH ×2 (04:12→22:03)
[2020-08-02] MEDS ORDERED: MAGNESIUM HYDROXIDE 2,400 MG/30 ML ORAL.SUSP. PO PRN (06:00)
[2020-08-02 07:00] VITALS: BP 117/50
--- NOTE | 2020-08-02 08:24 | PDOC ---
[facility] PROGRESS NOTE Date of Service DOS: DATE: 08/02/20 TIME: 08:22 Chief Complaint Chief Complaint A/P: Fall - sounds accidental, no LOC. PT for gait assessment Left humerus fracture - pain control. Ortho consulted. s/p ORIF 08/01/20 COVID 19 - diagnosed in june more than 20 days ago. Does not currently require oxygen. Imaging consistent with likely infection vs recovery phase. Hypertension - cont home amlodipine Seizures - managed on dilantin and keppra. Follows with Dr. Keen. No recent seizures in the past several years Anemia - likely of chronic disease, will check iron studies, TSH FEN - NPO PPX - SCDs FULL CODE Dispo - inpatient History of Present Illness History of Present Illness Ms Mckinley is a 79-year-old female w/ PMHx Hypertension, Seizures who presents to the emergency room after a fall at her SNF, [facility]. Patient fell over her end table due to slipping on her socks at the carpet transition. She denies any syncope. She denies hitting her head. She denies losing consciousness or neck pain. She was complaining of mild 4/10 elbow pain on the left which resolved with pain medication and immobilization. She denies any other pain. She has been able to move her fingers but is unable to move her elbow. She denies any numbness in her hand. She was diagnosed with COVID 19 on 07/12/2020 at [facility]. On radiograph found with acute left distal humerus fracture with approximately one shaft width lateral displacement with apex lateral angulation and mild overriding of the fracture site. Also notable are interstitial opacities as well as a more focal nodular opacity at the left lung base. Labs with WBC 9.7, Hb 10.1, platelets 278, NA 140, K3.8, BUN 16, CR 0.9, glucose 129. Due to ED physician concern for close proximity of bone scan in ED splinting was not performed and there awaiting orthopedic surgery evaluation for further care. Patient of note says she would not like to have surgery to correct this if there is something more conservative she would prefer this, advised surgery is the best option Admitted for pain control and further care. S/p ORIF left arm 08/01/2020 with plate/screws x3, tolerated procedure well. Seen post op day 1. She is somewhat confused, would like her son contacted. Pain well controlled, no SOB or CP. Plan: Will need skilled rehab at SNF D/c at discretion of orthopedic surgery in next 24-48 hours Vitals/I&O Vitals/I&O: Vital Signs Date Time Temp Pulse Resp B/P (MAP) Pulse Ox O2 Delivery O2 Flow Rate FiO2 08/02/20 07:00 98.1 73 20 117/50 (72) 99 Nasal Cannula 2.0 98.1 I & O 08/01/20 08/01/20 08/02/20 15:00 23:00 07:00 Intake Total 1120 ml 90 ml Output Total 300 ml Balance 820 ml 90 ml Physical Exam General: Alert, Cooperative Heart: Regular rate Lungs: Clear Abdomen: Soft Extremities: Other (The left humerus was in a sling. There is swelling and angular deformity on examination. There is tenting of the skin and I can palpate the sharp fracture edge beneath the skin with likely impending skin necrosis. She seems to have intact neurovascular function, and demonstrated sensory and motor function of the radial ulnar and median nerves within the limits of the pain and fracture.) Skin: No significant lesion Labs Labs: Laboratory Tests Test 08/01/20 08:23 08/01/20 11:20 08/01/20 15:43 08/01/20 16:26 Glucose (Fingerstick) 84 mg/dL (70-99) 76 mg/dL (70-99) 91 mg/dL (70-99) 111 mg/dL (70-99) Test 08/01/20 20:47 08/02/20 07:45 Glucose (Fingerstick) 211 mg/dL (70-99) 85 mg/dL (70-99) Assessment and Plan Assessmemt and Plan Problems Medical Problems: (1) Fall Status: Acute (2) Humerus distal fracture Status: Acute Comment Review of Relevant I have reviewed the following items carlota (where applicable) has been applied. Medications: Current Medications Medications (Trade) Dose Ordered Sig/Alice Route PRN Reason Start Time Stop Time Status Last Admin Dose Admin Fentanyl Citrate (Fentanyl 2ml Vial) 25 mcg PRN Q5MIN PRN IV MILD PAIN 1-3 08/01/20 09:00 08/01/20 18:00 DC 08/01/20 09:00 Fentanyl Citrate (Fentanyl 2ml Vial) 50 mcg PRN Q5MIN PRN IV MODERATE TO SEVERE PAIN 08/01/20 09:00 08/01/20 18:00 DC 08/01/20 15:47 Amlodipine Besylate (Norvasc) 5 mg DAILY PO 08/01/20 12:00 08/01/20 16:58 Atorvastatin Calcium (Lipitor) 10 mg QHS PO 08/01/20 21:00 08/01/20 21:18 Phenytoin Sodium (Dilantin) 300 mg HS PO 08/01/20 21:00 08/01/20 21:17 Levetiracetam (Keppra) 1,000 mg BID PO 08/01/20 12:00 08/01/20 21:18 Psyllium Hydrophilic Mucilloid (Metamucil Fiber Packet) 1 pkt QHS PO 08/01/20 21:00 08/01/20 21:18 Bupivacaine HCl/ Epinephrine Bitart (Sensorcaine-Epi 0.25%-1:849069 Mpf) 30 ml 1X ONCE INJ 08/01/20 12:15 08/01/20 12:16 DC 08/01/20 14:08 Vancomycin HCl (Vancomycin) 1 gm STK-MED ONCE .ROUTE 08/01/20 14:55 08/01/20 14:56 DC 08/01/20 15:04 Senna/Docusate Sodium (Senna Plus) 1 tab DAILY PO 08/01/20 16:00 08/01/20 16:58 Sodium Chloride 1,000 ml @ 75 mls/hr [id number] IV 08/01/20 16:00 08/02/20 04:12 Cefazolin Sodium/ Dextrose 50 ml @ 100 mls/hr Q6H IV 08/01/20 21:00 08/02/20 09:29 08/02/20 04:09 Justifications for Admission Other Justification JOSE GUADALUPE PETIT MD Aug 02, 2020 08:24
[2020-08-02] MEDS: MULTIVITAMIN with MINERAL TABLET. PO SCH (09:01)
[2020-08-02] MEDS: amLODIPine BESYLATE 5 MG TABLET PO SCH (09:01)
[2020-08-02] MEDS: CHOLECALCIFEROL (VITAMIN D3) 1,000 UNIT TABLET PO SCH (09:02)
[2020-08-02] MEDS: SENNOSIDES/DOCUSATE 8.6/50MG TABLET. PO SCH (09:02)
[2020-08-02] MEDS: levETIRAcetam 500 MG TABLET PO SCH ×2 (09:03→22:01)
[2020-08-02 11:00] VITALS: BP 106/44
[2020-08-02] MEDS: ENOXAPARIN 40 MG/0.4 ML SYRINGE. SQ SCH (14:10)
--- NOTE | 2020-08-02 14:44 | PDOC ---
PROGRESS NOTES Date of Service DATE: 08/02/20 TIME: 14:42 Subjective Subjective The arm feels better after the surgery. No complaints. She was here with her son and we discussed her surgery. Apparently I also did her late 's right hip surgery last year. He did well with the hip but had complications at with vascular surgery and ultimately recently. Objective Vital Signs Vital Signs Date Time Temp Pulse Resp B/P (MAP) Pulse Ox O2 Delivery O2 Flow Rate FiO2 08/02/20 11:00 97.9 70 16 106/44 (64) 98 Nasal Cannula 2.0 97.9 Physical Exam Elbow dressing is dry. She seems neurovascularly intact. The splint is intact. She demonstrated motor function of the radial nerve without difficulty. Labs Laboratory Tests Test 08/01/20 04:00 08/01/20 08:23 08/01/20 11:20 08/01/20 15:43 White Blood Count 9.7 x10^3/uL (4.0-11.0) Red Blood Count 3.30 x10^6/uL (3.50-5.40) Hemoglobin 10.1 g/dL (12.0-15.5) Hematocrit 30.4 % (36.0-47.0) Mean Corpuscular Volume 92 fL (79-100) Mean Corpuscular Hemoglobin 31 pg (25-35) Mean Corpuscular Hemoglobin Concent 33 g/dL (31-37) Red Cell Distribution Width 14.6 % (11.5-14.5) Platelet Count 278 x10^3/uL (140-400) Neutrophils (%) (Auto) 77 % (31-73) Lymphocytes (%) (Auto) 10 % (24-48) Monocytes (%) (Auto) 11 % (0-9) Eosinophils (%) (Auto) 1 % (0-3) Basophils (%) (Auto) 0 % (0-3) Neutrophils # (Auto) 7.5 x10^3/uL (1.8-7.7) Lymphocytes # (Auto) 0.9 x10^3/uL (1.0-4.8) Monocytes # (Auto) 1.1 x10^3/uL (0.0-1.1) Eosinophils # (Auto) 0.1 x10^3/uL (0.0-0.7) Basophils # (Auto) 0.0 x10^3/uL (0.0-0.2) Sodium Level 140 mmol/L (136-145) Potassium Level 3.8 mmol/L (3.5-5.1) Chloride Level 107 mmol/L (98-107) Carbon Dioxide Level 25 mmol/L (21-32) Anion Gap 8 (6-14) Blood Urea Nitrogen 16 mg/dL (7-20) Creatinine 0.9 mg/dL (0.6-1.0) Estimated GFR (Cockcroft-Gault) 60.4 Glucose Level 79 mg/dL (70-99) Calcium Level 8.9 mg/dL (8.5-10.1) Iron Level 41 ug/dL (50-170) Total Iron Binding Capacity 232 ug/dL (250-450) Iron Saturation 18 % (15-34) Thyroid Stimulating Hormone (TSH) 2.134 uIU/mL (0.358-3.74) SARS-CoV-2 Antigen (Rapid) Negative (NEGATIVE) Glucose (Fingerstick) 84 mg/dL (70-99) 76 mg/dL (70-99) 91 mg/dL (70-99) Test 08/01/20 16:26 08/01/20 20:47 08/02/20 07:45 08/02/20 11:47 Glucose (Fingerstick) 111 mg/dL (70-99) 211 mg/dL (70-99) 85 mg/dL (70-99) 101 mg/dL (70-99) Laboratory Tests Test 08/01/20 15:43 08/01/20 16:26 08/01/20 20:47 08/02/20 07:45 Glucose (Fingerstick) 91 mg/dL (70-99) 111 mg/dL (70-99) 211 mg/dL (70-99) 85 mg/dL (70-99) Test 08/02/20 11:47 Glucose (Fingerstick) 101 mg/dL (70-99) Assessment Assessment POD#1 after ORIF distal humeral shaft fracture Plan Plan of Care Continue with the splint. Light use of the fingers is encouraged. Office follow-up in about 2 weeks. Discharge planning. Justicifation of Admission Dx: Justifications for Admission: Justification of Admission Dx: Yes SOFYA DIALLO MD Aug 02, 2020 14:44
[2020-08-02 15:00] VITALS: BP 116/50
[2020-08-02] MEDS ORDERED: BISACODYL 10 MG SUPP.RECT. PR PRN (16:00)
[2020-08-02 19:00] VITALS: BP 156/51
[2020-08-02] MEDS ORDERED: PSYLLIUM HUSK (SUGAR FREE) 1 PKT PACKET PO SCH (21:00)
[2020-08-02] MEDS: PHENYTOIN SODIUM EXTENDED 100 MG CAPSULE PO SCH (22:01)
[2020-08-02] MEDS: PSYLLIUM HUSK (SUGAR FREE) 1 PKT PACKET PO SCH (22:01)
[2020-08-02] MEDS: ATORVASTATIN CALCIUM 10 MG TABLET. PO SCH (22:01)
[2020-08-02 23:00] VITALS: BP 102/63
[2020-08-03] MEDS ORDERED: diphenhydrAMINE 50 MG/ML VIAL IVP PRN (00:30)
[2020-08-03 03:00] VITALS: BP 125/80
[2020-08-03 07:00] VITALS: BP 131/60
[2020-08-03] MEDS: IV 1/2 NORMAL SALINE 1,000 ML IV SCH ×2 (08:00→20:04)
--- NOTE | 2020-08-03 08:18 | PDOC ---
PROGRESS NOTES Date of Service: DATE: 08/03/20 TIME: 08:17 Chief Complaint Chief Complaint impression Fall - sounds accidental, no LOC. PT for gait assessment Left humerus fracture - pain control. Ortho consulted. s/p ORIF 08/01/20 COVID 19 - diagnosed in june more than 20 days ago. Does not currently require oxygen. Imaging consistent with likely infection vs recovery phase. Hypertension - cont home amlodipine Seizures - managed on dilantin and keppra. Follows with Dr. Keen. No recent seizures in the past several years Anemia - likely of chronic disease, will check iron studies, TSH FEN - NPO PPX - SCDs FULL CODE Dispo - inpatient History of Present Illness History of Present Illness Ms Mckinley is a 79-year-old female w/ PMHx Hypertension, Seizures who presents to the emergency room after a fall at her SNF, [facility]. Patient fell over her end table due to slipping on her socks at the carpet transition. She denies any syncope. She denies hitting her head. She denies losing consciousness or neck pain. She was complaining of mild 4/10 elbow pain on the left which resolved with pain medication and immobilization. She denies any other pain. She has been able to move her fingers but is unable to move her elbow. She denies any numbness in her hand. She was diagnosed with COVID 19 on 07/12/2020 at [facility]. On radiograph found with acute left distal humerus fracture with approximately one shaft width lateral displacement with apex lateral angulation and mild overriding of the fracture site. Also notable are interstitial opacities as well as a more focal nodular opacity at the left lung base. Labs with WBC 9.7, Hb 10.1, platelets 278, NA 140, K3.8, BUN 16, CR 0.9, glucose 129. Due to ED physician concern for close proximity of bone scan in ED splinting was not performed and there awaiting orthopedic surgery evaluation for further care. Patient of note says she would not like to have surgery to correct this if there is something more conservative she would prefer this, advised surgery is the best option Admitted for pain control and further care. S/p ORIF left arm 08/01/2020 with plate/screws x3, tolerated procedure well. Seen post op day 1. She is somewhat confused, would like her son contacted. Pain well controlled, no SOB or CP. Plan: Will need skilled rehab at SNF D/c at discretion of orthopedic surgery in next 24-48 hours Vitals Vitals Vital Signs Date Time Temp Pulse Resp B/P (MAP) Pulse Ox O2 Delivery O2 Flow Rate FiO2 08/03/20 07:00 99.0 80 16 131/60 (83) 97 Nasal Cannula 2.0 99.0 Physical Exam General: Alert, Cooperative Heart: Regular rate Lungs: Clear Abdomen: Soft Extremities: Other (The left humerus was in a sling. There is swelling and an gular deformity on examination. There is tenting of the skin and I can palpate the sharp fracture edge beneath the skin with likely impending skin necrosis. She seems to have intact neurovascular function, and demonstrated sensory and motor function of the radial ulnar and median nerves within the limits of the pain and fracture.) Skin: No significant lesion Labs LABS Operative Note Operative Note Operative Note Date of Procedure: August 01, 2020 Pre-Op Diagnosis: Displaced spiral fracture of shaft of humerus, left arm, initial encounter for closed fracture S42.342A Post-Op Diagnosis: Same Procedure: Open treatment of left humeral shaft fracture with plate/screws, CPT 84707 Surgeon: Elio Brooks MD Anesthesia: Flamer Sealer: NICOLAS Del Rosario EBL: 100 mL Specimens Obtained: none Complications: none Drains: none Tourniquet time: 62 minutes DPOA REVIEW 18 MIN to patient portal What Is a Power of Ct Manager? A power of banking attorney (POA) is a legal document giving one person (the agent or jpilfurh-qa-spqs) the power to act for another person (the principal). The agent can have broad legal authority or limited authority to make legal decisions about the principal's property, finances or medical care. The power of banking attorney is frequently used in the event of a principal's illness or disability, or when the principal can't be present to sign necessary legal documents for financial transactions. A power of banking attorney can end for a number of reasons, such as when the principal dies, the principal revokes it, a court invalidates it, the principal divorces their spouse, who happens to be the agent, or the agent can no longer carry out the outlined responsibilities. Conventional POAs lapse when the creator becomes incapacitated, but a durable POA remains in force to enable the agent to manage the creators affairs, and a springing POA comes into effect only if and when the creator of the POA becomes incapacitated. A medical or healthcare POA enables an agent to make medical decisions on behalf of an incapacitated person. [employer] Take[employer] A power of banking attorney (POA) is a legal document giving one person, the agent or oewsoave-zf-rjvp the power to act for another person, the principal. The agent can have broad legal authority or limited authority to make decisions about the principal's property, finances or medical care. The power of banking attorney is often used when a principal becomes ill or disabled, or when they can't be present to sign necessary legal documents for financial transactions. Understanding Power of Ct Manager A power of banking attorney should be considered when planning for long-term care. There are different types of POAs that fall under either a general power of banking attorney or limited power of banking attorney. A general power of banking attorney acts on behalf of the principal in any and all matters, as allowed by the state. The agent under a general POA agreement may be authorized to take care of issues such as handling bank accounts, signing jv cks, selling property and assets like stocks, f A limited power of banking attorney gives the agent the power to act on behalf of the p rincipal in specific matters or events. For example, the limited POA may explicitly state that the agent is only allowed to manage the principal's senior living accounts. A limited POA may also be limited to a specific period of time (e.g., if the principal will be out of the country for, say, two years). Most [place] of banking attorney documents allow an agent to represent the principal in all property and financial matters as long as the principals mental state of mind is good. If a situation occurs where the principal becomes incapable of making decisions for him or herself, the POA agreement would automatically end. However, someone who wants the POA to remain in effect after the persons health deteriorates would need to sign a durable power of banking attorney (DPOA). What is an advance directive? An advance directive is a legal document that says how you want to be cared for if you are unable to make decisions. You can include what medical treatments you would want and who you would trust to make decisions for you. An advance directive can also include other legal documents. A living will is a list of treatment preferences. It can be used to indicate whether you would want cardiopulmonary resuscitation (CPR), tube feedings, a breathing machine, or certain medicines, like antibiotics. The durable power of banking attorney for health care document identifies the person you would want to make medical decisions for you. This person is also called a proxy. Your proxy should be familiar with your values and wishes. How do I get started? You can get advance directive documents for your state from your doctor's office or from http://www.caringinfo.org. Review the forms, and ask your doctor if you have any questions. Pick a person to be your proxy, and talk it over with that person. Laboratory Tests Test 08/02/20 11:47 08/02/20 16:44 08/02/20 20:33 08/03/20 07:39 Glucose (Fingerstick) 101 mg/dL (70-99) 95 mg/dL (70-99) 102 mg/dL (70-99) 95 mg/dL (70-99) Assessment and Plan Assessmemt and Plan Problems Medical Problems: (1) Fall Status: Acute (2) Humerus distal fracture Status: Acute Comment Review of Relevant I have reviewed the following items carlota (where applicable) has been applied. Labs Laboratory Tests Test 08/01/20 08:23 08/01/20 11:20 08/01/20 15:43 08/01/20 16:26 Glucose (Fingerstick) 84 mg/dL (70-99) 76 mg/dL (70-99) 91 mg/dL (70-99) 111 mg/dL (70-99) Test 08/01/20 20:47 08/02/20 07:45 08/02/20 11:47 08/02/20 16:44 Glucose (Fingerstick) 211 mg/dL (70-99) 85 mg/dL (70-99) 101 mg/dL (70-99) 95 mg/dL (70-99) Test 08/02/20 20:33 08/03/20 07:39 Glucose (Fingerstick) 102 mg/dL (70-99) 95 mg/dL (70-99) Laboratory Tests Test 08/02/20 11:47 08/02/20 16:44 08/02/20 20:33 08/03/20 07:39 Glucose (Fingerstick) 101 mg/dL (70-99) 95 mg/dL (70-99) 102 mg/dL (70-99) 95 mg/dL (70-99) Medications Current Medications Sodium Chloride 1,000 ml @ 100 mls/hr Q10H IV Last administered on 08/01/20at 08:59; Start 08/01/20 at 08:00 Fentanyl Citrate (Fentanyl 2ml Vial) 25 mcg PRN Q2HR PRN IVP PAIN; Start 08/01/20 at 08:00 Fentanyl Citrate (Fentanyl 2ml Vial) 50 mcg PRN Q2HR PRN IVP PAIN Last administered on 08/02/20at 22:12; Start 08/01/20 at 08:00 Ondansetron HCl (Zofran) 4 mg PRN Q6HRS PRN IVP NAUSEA/VOMITING; Start 08/01/20 at 08:00; Stop 08/02/20 at 15:53; Status DC Ondansetron HCl (Zofran) 4 mg PRN Q6HRS PRN IV NAUSEA/VOMITING; Start 08/01/20 at 09:00; Stop 08/01/20 at 18:00; Status DC Fentanyl Citrate (Fentanyl 2ml Vial) 25 mcg PRN Q5MIN PRN IV MILD PAIN 1-3 Last administered on 08/01/20at 09:00; Start 08/01/20 at 09:00; Stop 08/01/20 at 18:00; Status DC Fentanyl Citrate (Fentanyl 2ml Vial) 50 mcg PRN Q5MIN PRN IV MODERATE TO SEVERE PAIN Last administered on 08/01/20at 15:47; Start 08/01/20 at 09:00; Stop 08/01/20 at 18:00; Status DC Morphine Sulfate (Morphine Sulfate) 1 mg PRN Q10MIN PRN IV SEVERE PAIN 7-10; Start 08/01/20 at 09:00; Stop 08/01/20 at 18:00; Status DC Ringer's Solution 1,000 ml @ 30 mls/hr Q24H IV ; Start 08/01/20 at 09:00; Stop 08/01/20 at 20:59; Status DC Lidocaine HCl (Xylocaine-Mpf 1% 2ml Vial) 2 ml PRN 1X PRN ID PRIOR TO IV START; Start 08/01/20 at 09:00; Stop 08/01/20 at 15:00; Status DC Hydromorphone HCl (Dilaudid) 0.5 mg PRN Q10MIN PRN IV SEV PAIN, Second choice; Start 08/01/20 at 09:00; Stop 08/01/20 at 18:00; Status DC Prochlorperazine Edisylate (Compazine) 5 mg PACU PRN PRN IV NAUSEA, MRX1; Start 08/01/20 at 09:00; Stop 08/01/20 at 18:00; Status DC Amlodipine Besylate (Norvasc) 5 mg DAILY PO Last administered on 08/02/20at 09:01; Start 08/01/20 at 12:00 Atorvastatin Calcium (Lipitor) 10 mg QHS PO Last administered on 08/02/20at 22:01; Start 08/01/20 at 21:00 Phenytoin Sodium (Dilantin) 300 mg HS PO Last administered on 08/02/20at 22:01; Start 08/01/20 at 21:00 Levetiracetam (Keppra) 1,000 mg BID PO Last administered on 08/02/20at 22:01; Start 08/01/20 at 12:00 Psyllium Hydrophilic Mucilloid (Metamucil Fiber Packet) 1 pkt QHS PO Last administered on 08/02/20at 22:01; Start 08/01/20 at 21:00 Bupivacaine HCl/ Epinephrine Bitart (Sensorcaine-Epi 0.25%-1:[id number] Mpf) 30 ml 1X ONCE INJ Last administered on 08/01/20at 14:08; Start 08/01/20 at 12:15; Stop 08/01/20 at 12:16; Status DC Cefazolin Sodium (Ancef) 1 gm STK-MED ONCE IVP ; Start 08/01/20 at 13:08; Stop 08/01/20 at 13:08; Status DC Fentanyl Citrate (Fentanyl 2ml Vial) 100 mcg STK-MED ONCE .ROUTE ; Start 08/01/20 at 13:15; Stop 08/01/20 at 13:15; Status DC Propofol (Diprivan) 200 mg STK-MED ONCE IV ; Start 08/01/20 at 13:32; Stop 08/01/20 at 13:32; Status DC Lidocaine HCl (Lidocaine Pf 2% Vial) 5 ml STK-MED ONCE .ROUTE ; Start 08/01/20 at 13:32; Stop 08/01/20 at 13:32; Status DC Dexamethasone Sodium Phosphate (Decadron) 4 mg STK-MED ONCE .ROUTE ; Start 08/01/20 at 13:32; Stop 08/01/20 at 13:32; Status DC Ondansetron HCl (Zofran) 4 mg STK-MED ONCE .ROUTE ; Start 08/01/20 at 13:32; Stop 08/01/20 at 13:32; Status DC Phenylephrine HCl (PHENYLEPHRINE in 0.9% NACL PF) 1 mg STK-MED ONCE IV ; Start 08/01/20 at 13:32; Stop 08/01/20 at 13:32; Status DC Ephedrine Sulfate (Akovaz) 50 mg STK-MED ONCE .ROUTE ; Start 08/01/20 at 13:32; Stop 08/01/20 at 13:32; Status DC Sevoflurane (Ultane) 60 ml STK-MED ONCE IH ; Start 08/01/20 at 13:33; Stop 08/01/20 at 13:33; Status DC Fentanyl Citrate (Fentanyl 2ml Vial) 100 mcg STK-MED ONCE .ROUTE ; Start 08/01/20 at 14:09; Stop 08/01/20 at 14:09; Status DC Vancomycin HCl (Vancomycin) 1 gm STK-MED ONCE .ROUTE Last administered on 08/01/20at 15:04; Start 08/01/20 at 14:55; Stop 08/01/20 at 14:56; Status DC Fentanyl Citrate (Fentanyl 2ml Vial) 100 mcg STK-MED ONCE .ROUTE ; Start 08/01/20 at 15:20; Stop 08/01/20 at 15:21; Status DC Fentanyl Citrate (Fentanyl 2ml Vial) 25 mcg PRN Q1HR PRN IVP SEVERE PAIN 7-10; Start 08/01/20 at 16:00; Status Cancel Multivitamins (Thera M Plus) 1 tab DAILY PO Last administered on 08/02/20at 09:01; Start 08/02/20 at 09:00 Senna/Docusate Sodium (Senna Plus) 1 tab DAILY PO Last administered on at 09:02; Start 08/01/20 at 16:00 Polyethylene Glycol (miraLAX PACKET) 17 gm PRN DAILY PRN PO CONSTIPATION; Start 08/01/20 at 16:00 Vitamin D (Vitamin D3) 1,000 unit DAILY PO Last administered on 08/02/20at 09:02; Start 08/02/20 at 09:00 Sodium Chloride 1,000 ml @ 75 mls/hr [id number] IV Last administered on 08/02/20at 22:03; Start 08/01/20 at 16:00 Ondansetron HCl (Zofran) 4 mg PRN Q4HRS PRN IVP NAUSEA/VOMITING; Start 08/01/20 at 16:00 Magnesium Hydroxide (Milk Of Magnesia) 2,400 mg 1X PRN PRN PO CONSTIPATION; Start 08/02/20 at 06:00; Stop 08/03/20 at 05:59; Status DC Bisacodyl (Dulcolax Supp) 10 mg 1X PRN PRN SC CONSTIPATION; Start 08/02/20 at 16:00; Stop 08/03/20 at 15:59 Dextrose (Dextrose 50%-Water Syringe) 12.5 gm PRN Q15MIN PRN IV SEE COMMENTS; Start 08/01/20 at 16:00 Cefazolin Sodium/ Dextrose 50 ml @ 100 mls/hr Q6H IV Last administered on 08/02/20at 09:04; Start 08/01/20 at 21:00; Stop 08/02/20 at 09:29; Status DC Oxycodone/ Acetaminophen (Percocet 5/325) 1 tab PRN Q4HRS PRN PO MODERATE PAIN; Start 08/01/20 at 16:00 Acetaminophen (Tylenol) 650 mg PRN Q6HRS PRN PO MILD PAIN / TEMP > 100.3'F; Start 08/01/20 at 16:00 Oxycodone/ Acetaminophen (Percocet 5/325) 2 tab PRN Q4HRS PRN PO SEVERE PAIN; Start 08/01/20 at 16:15 Psyllium Hydrophilic Mucilloid (Metamucil Fiber Packet) 1 pkt QHS PO ; Start 08/02/20 at 21:00; Status Cancel Enoxaparin Sodium (Lovenox 40mg Syringe) 40 mg Q24H SQ Last administered on 08/02/20at 14:10; Start 08/02/20 at 12:00 Lorazepam (Ativan Inj) 1 mg PRN Q4HRS PRN IVP ANXIETY / AGITATION Last administered on 08/03/20at 06:15; Start 08/03/20 at 00:15 Diphenhydramine HCl (Benadryl) 25 mg PRN Q6HRS PRN IVP ITCHING Last administered on 08/03/20at 00:28; Start 08/03/20 at 00:30 Lorazepam (Ativan Inj) 2 mg PRN Q4HRS PRN IVP ANXIETY / AGITATION; Start 08/03/20 at 00:30 Active Scripts Active Xanax (Alprazolam) 0.25 Mg Tablet 0.25 Mg PO TID PRN PRN Lipitor (Atorvastatin Calcium) 10 Mg Tablet 1 Tab PO QHS Norvasc (Amlodipine Besylate) 10 Mg Tablet 5 Mg PO DAILY PRN Reported Keppra (Levetiracetam) 1,000 Mg Tablet 1 Tab PO BID Dilantin (Phenytoin Sodium Extended) 100 Mg Capsule 300 Mg PO HS Vitals/I & O Vital Sign - Last 24 Hours 08/02/20 08/02/20 08/02/20 08/02/20 09:01 11:00 15:00 19:00 Temp 97.9 98.2 98.6 97.9 98.2 98.6 Pulse 73 70 76 85 Resp 16 16 16 B/P (MAP) 117/50 106/44 (64) 116/50 (72) 156/51 (86) Pulse Ox 98 98 98 O2 Delivery Nasal Cannula Nasal Cannula Nasal Cannula O2 Flow Rate 2.0 2.0 2.0 08/02/20 08/02/20 08/02/20 08/02/20 20:30 22:12 23:00 23:30 Temp 99.4 99.4 Pulse 88 Resp 18 16 16 B/P (MAP) 102/63 (76) Pulse Ox 98 92 98 O2 Delivery Nasal Cannula Nasal Cannula Nasal Cannula Nasal Cannula O2 Flow Rate 2.0 2.0 2.0 08/03/20 08/03/20 03:00 07:00 Temp 98.3 99.0 98.3 99.0 Pulse 79 80 Resp 16 16 B/P (MAP) 125/80 (95) 131/60 (83) Pulse Ox 92 97 O2 Delivery Nasal Cannula Nasal Cannula O2 Flow Rate 2.0 2.0 Intake and Output 08/02/20 08/02/20 08/03/20 15:00 23:00 07:00 Intake Total 720 ml 360 ml 90 ml Balance 720 ml 360 ml 90 ml Justicifation of Admission Dx: Justifications for Admission: Justification of Admission Dx: Yes CINDY HURT MD Aug 03, 2020 08:18
[2020-08-03] MEDS: IV NORMAL SALINE 1000ML BAG 1,000 ML IV SCH ×2 (10:00→20:00)
[2020-08-03] MEDS: SENNOSIDES/DOCUSATE 8.6/50MG TABLET. PO SCH (10:07)
[2020-08-03] MEDS: levETIRAcetam 500 MG TABLET PO SCH ×2 (10:07→20:02)
[2020-08-03] MEDS: amLODIPine BESYLATE 5 MG TABLET PO SCH (10:08)
[2020-08-03] MEDS: MULTIVITAMIN with MINERAL TABLET. PO SCH (10:08)
[2020-08-03] MEDS: CHOLECALCIFEROL (VITAMIN D3) 1,000 UNIT TABLET PO SCH (10:08)
[2020-08-03 10:48] LABS: BASO % 1 % (0-3); EOS # 0.2 x10^3/uL (0.0-0.7); EOS % 3 % (0-3); HEMATOCRIT 22.3 % (36.0-47.0); HEMOGLOBIN 7.4 g/dL (12.0-15.5); LYMPH # 1.2 x10^3/uL (1.0-4.8); LYMPH % 22 % (24-48); MEAN CORPUSCULAR HEMOGLOBIN 30 pg (25-35); MEAN CORPUSCULAR HGB CONC 33 g/dL (31-37); MEAN CORPUSCULAR VOLUME 91 fL (79-100); MONO # 0.9 x10^3/uL (0.0-1.1); MONO % 15 % (0-9); NEUT # 3.3 x10^3/uL (1.8-7.7); NEUT % 60 % (31-73); PLATELET COUNT 196 x10^3/uL (140-400); RED BLOOD COUNT 2.45 x10^6/uL (3.50-5.40); RED CELL DISTRIBUTION WIDTH 14.8 % (11.5-14.5); WHITE BLOOD COUNT 5.5 x10^3/uL (4.0-11.0)
[2020-08-03 11:00] VITALS: BP 126/58
[2020-08-03 11:04] LABS: CALCIUM 8.1 mg/dL (8.5-10.1); CREATININE 0.8 mg/dL (0.6-1.0)
--- NOTE | 2020-08-03 11:31 | NUR ---
SW following. Discussed with RN. 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 Pt can return to [facility] to SNF or LTC. PT/OT recommending SNU. Pt has been COVID positive since 07/01/20 - but is considered COVID recovered. SW will continue to follow.
[2020-08-03] MEDS: ENOXAPARIN 40 MG/0.4 ML SYRINGE. SQ SCH (12:54)
[2020-08-03 14:33] VITALS: BP 109/49
--- NOTE | 2020-08-03 16:59 | NUR ---
IP: Pt is COVID positive recovered and does not require isolation.
[2020-08-03 19:00] VITALS: BP 140/80
[2020-08-03] MEDS: ATORVASTATIN CALCIUM 10 MG TABLET. PO SCH (20:02)
[2020-08-03] MEDS: PSYLLIUM HUSK (SUGAR FREE) 1 PKT PACKET PO SCH (20:03)
[2020-08-03] MEDS: PHENYTOIN SODIUM EXTENDED 100 MG CAPSULE PO SCH (20:03)
[2020-08-03 23:00] VITALS: BP 169/79
[2020-08-04 03:00] VITALS: BP 131/77
[2020-08-04] MEDS: IV NORMAL SALINE 1000ML BAG 1,000 ML IV SCH (04:08)
[2020-08-04 07:00] VITALS: BP 150/71
[2020-08-04] MEDS: CHOLECALCIFEROL (VITAMIN D3) 1,000 UNIT TABLET PO SCH (09:00)
[2020-08-04] MEDS: MULTIVITAMIN with MINERAL TABLET. PO SCH (09:53)
[2020-08-04] MEDS: SENNOSIDES/DOCUSATE 8.6/50MG TABLET. PO SCH (09:53)
[2020-08-04] MEDS: levETIRAcetam 500 MG TABLET PO SCH (09:53)
[2020-08-04] MEDS: oxyCODONE/APAP 5/325 1 TAB TABLET PO PRN ×2 (09:54→17:56)
[2020-08-04] MEDS: amLODIPine BESYLATE 5 MG TABLET PO SCH (09:56)
--- NOTE | 2020-08-04 10:36 | NUR ---
AKANKSHA following. Discussed with RN, pt from [facility] terminal manager care. PT/OT recommending SNU. AKANKSHA notified [facility] of potential discharge today. AKANKSHA faxed clinicals, awaiting SNU discharge orders. AKANKSHA will continue to follow. Addendum: 08/04/20 at 1328 by AMARJIT VALE Discharge orders faxed to [facility] - awaiting transportation time. AKANKSHA will continue to follow. Addendum: 08/04/20 at 1542 by AMARJIT VALE Stretcher transportation scheduled for between 1999 -2099 for pt to return to [facility] SNU. RN notified.
--- NOTE | 2020-08-04 10:57 | PDOC ---
PROGRESS NOTES Date of Service: DATE: 08/04/20 TIME: 10:57 Chief Complaint Chief Complaint DISCHARGE DX Fall - sounds accidental, no LOC. PT for gait assessment Left humerus fracture - pain control. Ortho consulted. s/p ORIF 08/01/20 COVID 19 - diagnosed in june more than 20 days ago. Does not currently require oxygen. Imaging consistent with likely infection vs recovery phase. Hypertension - cont home amlodipine Seizures - managed on dilantin and keppra. Follows with Dr. Keen. No recent seizures in the past several years Anemia - likely of chronic disease, will check iron studies, TSH FEN - REG DIET PPX - SCDs FULL CODE Dispo - inpatient D/C PLANNING 28 MIN History of Present Illness History of Present Illness Ms Mckinley is a 79-year-old female w/ PMHx Hypertension, Seizures who presents to the emergency room after a fall at her SNF, [facility]. Patient fell over her end table due to slipping on her socks at the carpet transition. She denies any syncope. She denies hitting her head. She denies losing consciousness or neck pain. She was complaining of mild 4/10 elbow pain on the left which resolved with pain medication and immobilization. She denies any other pain. She has been able to move her fingers but is unable to move her elbow. She denies any numbness in her hand. She was diagnosed with COVID 19 on 07/12/2020 at [facility]. On radiograph found with acute left distal humerus fracture with approximately one shaft width lateral displacement with apex lateral angulation and mild overriding of the fracture site. Also notable are interstitial opacities as well as a more focal nodular opacity at the left lung base. Labs with WBC 9.7, Hb 10.1, platelets 278, NA 140, K3.8, BUN 16, CR 0.9, glucose 129. Due to ED physician concern for close proximity of bone scan in ED splinting was not performed and there awaiting orthopedic surgery evaluation for further care. Patient of note says she would not like to have surgery to correct this if there is something more conservative she would prefer this, advised surgery is the best option Admitted for pain control and further care. S/p ORIF left arm 08/01/2020 with plate/screws x3, tolerated procedure well. Seen post op day 1. She is somewhat confused, would like her son contacted. Pain well controlled, no SOB or CP. Plan: Will need skilled rehab at SNF D/c at discretion of orthopedic surgery in next 24-48 hours Vitals Vitals Vital Signs Date Time Temp Pulse Resp B/P (MAP) Pulse Ox O2 Delivery O2 Flow Rate FiO2 08/04/20 09:56 75 150/71 08/04/20 09:54 98 Nasal Cannula 2.0 08/04/20 07:00 97.6 18 97.6 Physical Exam General: Alert, Cooperative, No acute distress Heart: Regular rate, Normal S1 Lungs: Clear Abdomen: Normal bowel sounds, Soft Extremities: No cyanosis, Other (The left humerus was in a sling. There is swelling and angular deformity on examination. There is tenting of the skin and I can palpate the sharp fracture edge beneath the skin with likely impending skin necrosis. She seems to have intact neurovascular function, and demonstrated sensory and motor function of the radial ulnar and median nerves within the limits of the pain and fracture.) Skin: No significant lesion Labs LABS Laboratory Tests Test 08/03/20 11:39 08/03/20 16:31 08/03/20 20:34 08/04/20 07:33 Glucose (Fingerstick) 103 mg/dL (70-99) 84 mg/dL (70-99) 79 mg/dL (70-99) 68 mg/dL (70-99) Assessment and Plan Assessmemt and Plan Problems Medical Problems: (1) Fall Status: Acute (2) Humerus distal fracture Status: Acute Comment Review of Relevant I have reviewed the following items carlota (where applicable) has been applied. Labs Laboratory Tests Test 08/02/20 11:47 08/02/20 16:44 08/02/20 20:33 08/03/20 07:39 Glucose (Fingerstick) 101 mg/dL (70-99) 95 mg/dL (70-99) 102 mg/dL (70-99) 95 mg/dL (70-99) Test 08/03/20 10:00 08/03/20 11:39 08/03/20 16:31 08/03/20 20:34 White Blood Count 5.5 x10^3/uL (4.0-11.0) Red Blood Count 2.45 x10^6/uL (3.50-5.40) Hemoglobin 7.4 g/dL (12.0-15.5) Hematocrit 22.3 % (36.0-47.0) Mean Corpuscular Volume 91 fL (79-100) Mean Corpuscular Hemoglobin 30 pg (25-35) Mean Corpuscular Hemoglobin Concent 33 g/dL (31-37) Red Cell Distribution Width 14.8 % (11.5-14.5) Platelet Count 196 x10^3/uL (140-400) Neutrophils (%) (Auto) 60 % (31-73) Lymphocytes (%) (Auto) 22 % (24-48) Monocytes (%) (Auto) 15 % (0-9) Eosinophils (%) (Auto) 3 % (0-3) Basophils (%) (Auto) 1 % (0-3) Neutrophils # (Auto) 3.3 x10^3/uL (1.8-7.7) Lymphocytes # (Auto) 1.2 x10^3/uL (1.0-4.8) Monocytes # (Auto) 0.9 x10^3/uL (0.0-1.1) Eosinophils # (Auto) 0.2 x10^3/uL (0.0-0.7) Basophils # (Auto) 0.0 x10^3/uL (0.0-0.2) Sodium Level 141 mmol/L (136-145) Potassium Level 4.0 mmol/L (3.5-5.1) Chloride Level 106 mmol/L (98-107) Carbon Dioxide Level 27 mmol/L (21-32) Anion Gap 8 (6-14) Blood Urea Nitrogen 9 mg/dL (7-20) Creatinine 0.8 mg/dL (0.6-1.0) Estimated GFR (Cockcroft-Gault) 69.0 Glucose Level 86 mg/dL (70-99) Calcium Level 8.1 mg/dL (8.5-10.1) Glucose (Fingerstick) 103 mg/dL (70-99) 84 mg/dL (70-99) 79 mg/dL (70-99) Test 08/04/20 07:33 Glucose (Fingerstick) 68 mg/dL (70-99) Laboratory Tests Test 08/03/20 11:39 08/03/20 16:31 08/03/20 20:34 08/04/20 07:33 Glucose (Fingerstick) 103 mg/dL (70-99) 84 mg/dL (70-99) 79 mg/dL (70-99) 68 mg/dL (70-99) Medications Current Medications Sodium Chloride 1,000 ml @ 100 mls/hr Q10H IV Last administered on 08/01/20at 08:59; Start 08/01/20 at 08:00 Fentanyl Citrate (Fentanyl 2ml Vial) 25 mcg PRN Q2HR PRN IVP PAIN; Start 08/01/20 at 08:00 Fentanyl Citrate (Fentanyl 2ml Vial) 50 mcg PRN Q2HR PRN IVP PAIN Last administered on 08/02/20at 22:12; Start 08/01/20 at 08:00 Ondansetron HCl (Zofran) 4 mg PRN Q6HRS PRN IVP NAUSEA/VOMITING; Start 08/01/20 at 08:00; Stop 08/02/20 at 15:53; Status DC Ondansetron HCl (Zofran) 4 mg PRN Q6HRS PRN IV NAUSEA/VOMITING; Start 08/01/20 at 09:00; Stop 08/01/20 at 18:00; Status DC Fentanyl Citrate (Fentanyl 2ml Vial) 25 mcg PRN Q5MIN PRN IV MILD PAIN 1-3 Last administered on 08/01/20at 09:00; Start 08/01/20 at 09:00; Stop 08/01/20 at 18:00; Status DC Fentanyl Citrate (Fentanyl 2ml Vial) 50 mcg PRN Q5MIN PRN IV MODERATE TO SEVERE PAIN Last administered on 08/01/20at 15:47; Start 08/01/20 at 09:00; Stop 08/01/20 at 18:00; Status DC Morphine Sulfate (Morphine Sulfate) 1 mg PRN Q10MIN PRN IV SEVERE PAIN 7-10; Start 08/01/20 at 09:00; Stop 08/01/20 at 18:00; Status DC Ringer's Solution 1,000 ml @ 30 mls/hr Q24H IV ; Start 08/01/20 at 09:00; Stop 08/01/20 at 20:59; Status DC Lidocaine HCl (Xylocaine-Mpf 1% 2ml Vial) 2 ml PRN 1X PRN ID PRIOR TO IV START; Start 08/01/20 at 09:00; Stop 08/01/20 at 15:00; Status DC Hydromorphone HCl (Dilaudid) 0.5 mg PRN Q10MIN PRN IV SEV PAIN, Second choice; Start 08/01/20 at 09:00; Stop 08/01/20 at 18:00; Status DC Prochlorperazine Edisylate (Compazine) 5 mg PACU PRN PRN IV NAUSEA, MRX1; Start 08/01/20 at 09:00; Stop 08/01/20 at 18:00; Status DC Amlodipine Besylate (Norvasc) 5 mg DAILY PO Last administered on 08/04/20at 09:56; Start 08/01/20 at 12:00 Atorvastatin Calcium (Lipitor) 10 mg QHS PO Last administered on 08/03/20at 20:02; Start 08/01/20 at 21:00 Phenytoin Sodium (Dilantin) 300 mg HS PO Last administered on 08/03/20at 20:03; Start 08/01/20 at 21:00 Levetiracetam (Keppra) 1,000 mg BID PO Last administered on 08/04/20at 09:53; Start 08/01/20 at 12:00 Psyllium Hydrophilic Mucilloid (Metamucil Fiber Packet) 1 pkt QHS PO Last administered on 08/03/20at 20:03; Start 08/01/20 at 21:00 Bupivacaine HCl/ Epinephrine Bitart (Sensorcaine-Epi 0.25%-1:[id number] Mpf) 30 ml 1X ONCE INJ Last administered on 08/01/20at 14:08; Start 08/01/20 at 12:15; Stop 08/01/20 at 12:16; Status DC Cefazolin Sodium (Ancef) 1 gm STK-MED ONCE IVP ; Start 08/01/20 at 13:08; Stop 08/01/20 at 13:08; Status DC Fentanyl Citrate (Fentanyl 2ml Vial) 100 mcg STK-MED ONCE .ROUTE ; Start 08/01/20 at 13:15; Stop 08/01/20 at 13:15; Status DC Propofol (Diprivan) 200 mg STK-MED ONCE IV ; Start 08/01/20 at 13:32; Stop 08/01/20 at 13:32; Status DC Lidocaine HCl (Lidocaine Pf 2% Vial) 5 ml STK-MED ONCE .ROUTE ; Start 08/01/20 at 13:32; Stop 08/01/20 at 13:32; Status DC Dexamethasone Sodium Phosphate (Decadron) 4 mg STK-MED ONCE .ROUTE ; Start 08/01/20 at 13:32; Stop 08/01/20 at 13:32; Status DC Ondansetron HCl (Zofran) 4 mg STK-MED ONCE .ROUTE ; Start 08/01/20 at 13:32; Stop 08/01/20 at 13:32; Status DC Phenylephrine HCl (PHENYLEPHRINE in 0.9% NACL PF) 1 mg STK-MED ONCE IV ; Start 08/01/20 at 13:32; Stop 08/01/20 at 13:32; Status DC Ephedrine Sulfate (Akovaz) 50 mg STK-MED ONCE .ROUTE ; Start 08/01/20 at 13:32; Stop 08/01/20 at 13:32; Status DC Sevoflurane (Ultane) 60 ml STK-MED ONCE IH ; Start 08/01/20 at 13:33; Stop 08/01/20 at 13:33; Status DC Fentanyl Citrate (Fentanyl 2ml Vial) 100 mcg STK-MED ONCE .ROUTE ; Start 08/01/20 at 14:09; Stop 08/01/20 at 14:09; Status DC Vancomycin HCl (Vancomycin) 1 gm STK-MED ONCE .ROUTE Last administered on 08/01/20at 15:04; Start 08/01/20 at 14:55; Stop 08/01/20 at 14:56; Status DC Fentanyl Citrate (Fentanyl 2ml Vial) 100 mcg STK-MED ONCE .ROUTE ; Start 08/01/20 at 15:20; Stop 08/01/20 at 15:21; Status DC Fentanyl Citrate (Fentanyl 2ml Vial) 25 mcg PRN Q1HR PRN IVP SEVERE PAIN 7-10; Start 08/01/20 at 16:00; Status Cancel Multivitamins (Thera M Plus) 1 tab DAILY PO Last administered on 08/04/20at 09:53; Start 08/02/20 at 09:00 Senna/Docusate Sodium (Senna Plus) 1 tab DAILY PO Last administered on 08/04/20at 09:53; Start 08/01/20 at 16:00 Polyethylene Glycol (miraLAX PACKET) 17 gm PRN DAILY PRN PO CONSTIPATION; Start 08/01/20 at 16:00 Vitamin D (Vitamin D3) 1,000 unit DAILY PO Last administered on 08/04/20at 09:00; Start 08/02/20 at 09:00 Sodium Chloride 1,000 ml @ 75 mls/hr [id number] IV Last administered on 08/03/20at 20:04; Start 08/01/20 at 16:00 Ondansetron HCl (Zofran) 4 mg PRN Q4HRS PRN IVP NAUSEA/VOMITING; Start 08/01/20 at 16:00 Magnesium Hydroxide (Milk Of Magnesia) 2,400 mg 1X PRN PRN PO CONSTIPATION; Start 08/02/20 at 06:00; Stop 08/03/20 at 05:59; Status DC Bisacodyl (Dulcolax Supp) 10 mg 1X PRN PRN SD CONSTIPATION; Start 08/02/20 at 1 6:00; Stop 08/03/20 at 15:59; Status DC Dextrose (Dextrose 50%-Water Syringe) 12.5 gm PRN Q15MIN PRN IV SEE COMMENTS; Start 08/01/20 at 16:00 Cefazolin Sodium/ Dextrose 50 ml @ 100 mls/hr Q6H IV Last administered on 08/02/20at 09:04; Start 08/01/20 at 21:00; Stop 08/02/20 at 09:29; Status DC Oxycodone/ Acetaminophen (Percocet 5/325) 1 tab PRN Q4HRS PRN PO MODERATE PAIN Last administered on 08/04/20at 09:54; Start 08/01/20 at 16:00 Acetaminophen (Tylenol) 650 mg PRN Q6HRS PRN PO MILD PAIN / TEMP > 100.3'F; Start 08/01/20 at 16:00 Oxycodone/ Acetaminophen (Percocet 5/325) 2 tab PRN Q4HRS PRN PO SEVERE PAIN Last administered on 08/03/20at 10:07; Start 08/01/20 at 16:15 Psyllium Hydrophilic Mucilloid (Metamucil Fiber Packet) 1 pkt QHS PO ; Start 08/02/20 at 21:00; Status Cancel Enoxaparin Sodium (Lovenox 40mg Syringe) 40 mg Q24H SQ Last administered on 08/03/20at 12:54; Start 08/02/20 at 12:00 Lorazepam (Ativan Inj) 1 mg PRN Q4HRS PRN IVP ANXIETY / AGITATION Last administered on 08/03/20at 06:15; Start 08/03/20 at 00:15 Diphenhydramine HCl (Benadryl) 25 mg PRN Q6HRS PRN IVP ITCHING Last administered on 08/03/20at 00:28; Start 08/03/20 at 00:30 Lorazepam (Ativan Inj) 2 mg PRN Q4HRS PRN IVP ANXIETY / AGITATION Last administered on 08/04/20at 10:25; Start 08/03/20 at 00:30 Active Scripts Active Xanax (Alprazolam) 0.25 Mg Tablet 0.25 Mg PO TID PRN PRN Lipitor (Atorvastatin Calcium) 10 Mg Tablet 1 Tab PO QHS Norvasc (Amlodipine Besylate) 10 Mg Tablet 5 Mg PO DAILY PRN Reported Keppra (Levetiracetam) 1,000 Mg Tablet 1 Tab PO BID Dilantin (Phenytoin Sodium Extended) 100 Mg Capsule 300 Mg PO HS Vitals/I & O Vital Sign - Last 24 Hours 08/03/20 08/03/20 08/03/20 08/03/20 11:00 14:33 19:00 20:00 Temp 98.6 98.8 97.8 98.6 98.8 97.8 Pulse 79 66 89 Resp 18 18 20 B/P (MAP) 126/58 (80) 109/49 (69) 140/80 (100) Pulse Ox 98 98 99 O2 Delivery Nasal Cannula Nasal Cannula Nasal Cannula Nasal Cannula O2 Flow Rate 2.0 2.0 2.0 2.0 08/03/20 08/04/20 08/04/20 08/04/20 23:00 03:00 07:00 09:54 Temp 97.4 98.4 97.6 97.4 98.4 97.6 Pulse 83 76 75 Resp 18 18 18 B/P (MAP) 169/79 (109) 131/77 (95) 150/71 (97) Pulse Ox 94 99 98 98 O2 Delivery Nasal Cannula Nasal Cannula Nasal Cannula Nasal Cannula O2 Flow Rate 2.0 2.0 2.0 2.0 08/04/20 09:56 Pulse 75 B/P (MAP) 150/71 Intake and Output 08/03/20 08/03/20 08/04/20 15:00 23:00 07:00 Intake Total 0 ml 0 ml 900 ml Balance 0 ml 0 ml 900 ml Justicifation of Admission Dx: Justifications for Admission: Justification of Admission Dx: Yes CINDY HURT MD Aug 04, 2020 10:57
[2020-08-04 11:00] VITALS: BP 127/66
--- NOTE | 2020-08-04 13:03 | PDOC3 ---
Discharge Summary Date of Admission: Jul 31, 2020 Date of Discharge: Aug 04, 2020 Follow-Up: 1-2 days Admitting Diagnosis comment: DISCHARGE DX Fall - sounds accidental, no LOC. PT for gait assessment Left humerus fracture - pain control. Ortho consulted. s/p ORIF 08/01/20 COVID 19 - diagnosed in june more than 20 days ago. Does not currently require oxygen. Imaging consistent with likely infection vs recovery phase. Hypertension - cont home amlodipine Seizures - managed on dilantin and keppra. Follows with Dr. Keen. No recent seizures in the past several years Anemia - likely of chronic disease, will check iron studies, TSH FEN - REG DIET PPX - SCDs FULL CODE Dispo - inpatient D/C PLANNING 28 MIN History of Present Illness History of Present Illness Ms Mckinley is a 79-year-old female w/ PMHx Hypertension, Seizures who presents to the emergency room after a fall at her SNF, [facility]. Patient fell over her end table due to slipping on her socks at the carpet transition. She denies any syncope. She denies hitting her head. She denies losing consciousness or neck pain. She was complaining of mild 4/10 elbow pain on the left which resolved with pain medication and immobilization. She denies any other pain. She has been able to move her fingers but is unable to move her elbow. She denies any numbness in her hand. She was diagnosed with COVID 19 on 07/12/[address] [facility]. On radiograph found with acute left distal humerus fracture with approximately one shaft width lateral displacement with apex lateral angulation and mild overriding of the fracture site. Also notable are interstitial opacities as well as a more focal nodular opacity at the left lung base. Labs with WBC 9.7, Hb 10.1, platelets 278, NA 140, K3.8, BUN 16, CR 0.9, glucose 129. Due to ED physician concern for close proximity of bone scan in ED splinting was not performed and there awaiting orthopedic surgery evaluation for further care. Patient of note says she would not like to have surgery to correct this if there is something more conservative she would prefer this, advised surgery is the best option Admitted for pain control and further care. S/p ORIF left arm 08/01/2020 with plate/screws x3, tolerated procedure well. Seen post op day 1. She is somewhat confused, would like her son contacted. Pain well controlled, no SOB or CP. Plan: Will need skilled rehab at SNF D/c at discretion of orthopedic surgery in next 24-48 hours Vitals Vitals Vital Signs Date Time Temp Pulse Resp B/P (MAP) Pulse Ox O2 Delivery O2 Flow Rate FiO2 08/04/20 09:56 75 150/71 08/04/20 09:54 98 Nasal Cannula 2.0 08/04/20 07:00 97.6 18 97.6 Physical Exam General: Alert, Cooperative, No acute distress Heart: Regular rate, Normal S1 Lungs: Clear Abdomen: Normal bowel sounds, Soft Extremities: No cyanosis, Other (The left humerus was in a sling. There is swelling and angular deformity on examination. There is tenting of the skin and I can palpate the sharp fracture edge beneath the skin with likely impending skin necrosis. She seems to have intact neurovascular function, and demonstrated sensory and motor function of the radial ulnar and median nerves within the limits of the pain and fracture.) Skin: No significant lesion Labs LABS Laboratory Tests Test 08/03/20 11:39 08/03/20 16:31 08/03/20 20:34 08/04/20 07:33 Glucose (Fingerstick) 103 mg/dL (70-99) 84 mg/dL (70-99) 79 mg/dL (70-99) 68 mg/dL (70-99) FINAL DIAGNOSIS Problems Medical Problems: (1) Fall Status: Acute (2) Humerus distal fracture Status: Acute Brief Hospital Course Ms. Mckinley is a 80 old [sex] who presented with [ HUMERAL FX , FALL ] CONDITION AT DISCHARGE: Improved Discharge Medications Current Medications Sodium Chloride 1,000 ml @ 100 mls/hr Q10H IV Last administered on 08/01/20at 08:59; Start 08/01/20 at 08:00 Fentanyl Citrate (Fentanyl 2ml Vial) 25 mcg PRN Q2HR PRN IVP PAIN; Start 08/01/20 at 08:00 Fentanyl Citrate (Fentanyl 2ml Vial) 50 mcg PRN Q2HR PRN IVP PAIN Last administered on 08/02/20at 22:12; Start 08/01/20 at 08:00 Ondansetron HCl (Zofran) 4 mg PRN Q6HRS PRN IVP NAUSEA/VOMITING; Start 08/01/20 at 08:00; Stop 08/02/20 at 15:53; Status DC Ondansetron HCl (Zofran) 4 mg PRN Q6HRS PRN IV NAUSEA/VOMITING; Start 08/01/20 at 09:00; Stop 08/01/20 at 18:00; Status DC Fentanyl Citrate (Fentanyl 2ml Vial) 25 mcg PRN Q5MIN PRN IV MILD PAIN 1-3 Last administered on 08/01/20at 09:00; Start 08/01/20 at 09:00; Stop 08/01/20 at 18:00; Status DC Fentanyl Citrate (Fentanyl 2ml Vial) 50 mcg PRN Q5MIN PRN IV MODERATE TO SEVERE PAIN Last administered on 08/01/20at 15:47; Start 08/01/20 at 09:00; Stop 08/01/20 at 18:00; Status DC Morphine Sulfate (Morphine Sulfate) 1 mg PRN Q10MIN PRN IV SEVERE PAIN 7-10; Start 08/01/20 at 09:00; Stop 08/01/20 at 18:00; Status DC Ringer's Solution 1,000 ml @ 30 mls/hr Q24H IV ; Start 08/01/20 at 09:00; Stop 08/01/20 at 20:59; Status DC Lidocaine HCl (Xylocaine-Mpf 1% 2ml Vial) 2 ml PRN 1X PRN ID PRIOR TO IV START; Start 08/01/20 at 09:00; Stop 08/01/20 at 15:00; Status DC Hydromorphone HCl (Dilaudid) 0.5 mg PRN Q10MIN PRN IV SEV PAIN, Second choice; Start 08/01/20 at 09:00; Stop 08/01/20 at 18:00; Status DC Prochlorperazine Edisylate (Compazine) 5 mg PACU PRN PRN IV NAUSEA, MRX1; Start 08/01/20 at 09:00; Stop 08/01/20 at 18:00; Status DC Amlodipine Besylate (Norvasc) 5 mg DAILY PO Last administered on 08/04/20at 09:56; Start 08/01/20 at 12:00 Atorvastatin Calcium (Lipitor) 10 mg QHS PO Last administered on 08/03/20at 20:02; Start 08/01/20 at 21:00 Phenytoin Sodium (Dilantin) 300 mg HS PO Last administered on 08/03/20at 20:03; Start 08/01/20 at 21:00 Levetiracetam (Keppra) 1,000 mg BID PO Last administered on 08/04/20at 09:53; Start 08/01/20 at 12:00 Psyllium Hydrophilic Mucilloid (Metamucil Fiber Packet) 1 pkt QHS PO Last ad ministered on 08/03/20at 20:03; Start 08/01/20 at 21:00 Bupivacaine HCl/ Epinephrine Bitart (Sensorcaine-Epi 0.25%-1:813925 Mpf) 30 ml 1X ONCE INJ Last administered on 08/01/20at 14:08; Start 08/01/20 at 12:15; Stop 08/01/20 at 12:16; Status DC Cefazolin Sodium (Ancef) 1 gm STK-MED ONCE IVP ; Start 08/01/20 at 13:08; Stop 08/01/20 at 13:08; Status DC Fentanyl Citrate (Fentanyl 2ml Vial) 100 mcg STK-MED ONCE .ROUTE ; Start 08/01/20 at 13:15; Stop 08/01/20 at 13:15; Status DC Propofol (Diprivan) 200 mg STK-MED ONCE IV ; Start 08/01/20 at 13:32; Stop 08/01/20 at 13:32; Status DC Lidocaine HCl (Lidocaine Pf 2% Vial) 5 ml STK-MED ONCE .ROUTE ; Start 08/01/20 at 13:32; Stop 08/01/20 at 13:32; Status DC Dexamethasone Sodium Phosphate (Decadron) 4 mg STK-MED ONCE .ROUTE ; Start 08/01/20 at 13:32; Stop 08/01/20 at 13:32; Status DC Ondansetron HCl (Zofran) 4 mg STK-MED ONCE .ROUTE ; Start 08/01/20 at 13:32; Stop 08/01/20 at 13:32; Status DC Phenylephrine HCl (PHENYLEPHRINE in 0.9% NACL PF) 1 mg STK-MED ONCE IV ; Start 08/01/20 at 13:32; Stop 08/01/20 at 13:32; Status DC Ephedrine Sulfate (Akovaz) 50 mg STK-MED ONCE .ROUTE ; Start 08/01/20 at 13:32; Stop 08/01/20 at 13:32; Status DC Sevoflurane (Ultane) 60 ml STK-MED ONCE IH ; Start 08/01/20 at 13:33; Stop 08/01/20 at 13:33; Status DC Fentanyl Citrate (Fentanyl 2ml Vial) 100 mcg STK-MED ONCE .ROUTE ; Start 08/01/20 at 14:09; Stop 08/01/20 at 14:09; Status DC Vancomycin HCl (Vancomycin) 1 gm STK-MED ONCE .ROUTE Last administered on 08/01/20at 15:04; Start 08/01/20 at 14:55; Stop 08/01/20 at 14:56; Status DC Fentanyl Citrate (Fentanyl 2ml Vial) 100 mcg STK-MED ONCE .ROUTE ; Start 08/01/20 at 15:20; Stop 08/01/20 at 15:21; Status DC Fentanyl Citrate (Fentanyl 2ml Vial) 25 mcg PRN Q1HR PRN IVP SEVERE PAIN 7-10; Start 08/01/20 at 16:00; Status Cancel Multivitamins (Thera M Plus) 1 tab DAILY PO Last administered on 08/04/20at 09:53; Start 08/02/20 at 09:00 Senna/Docusate Sodium (Senna Plus) 1 tab DAILY PO Last administered on 08/04/20at 09:53; Start 08/01/20 at 16:00 Polyethylene Glycol (miraLAX PACKET) 17 gm PRN DAILY PRN PO CONSTIPATION; Start 08/01/20 at 16:00 Vitamin D (Vitamin D3) 1,000 unit DAILY PO Last administered on 08/04/20at 09:00; Start 08/02/20 at 09:00 Sodium Chloride 1,000 ml @ 75 mls/hr [id number] IV Last administered on 08/03/20at 20:04; Start 08/01/20 at 16:00 Ondansetron HCl (Zofran) 4 mg PRN Q4HRS PRN IVP NAUSEA/VOMITING; Start 08/01/20 at 16:00 Magnesium Hydroxide (Milk Of Magnesia) 2,400 mg 1X PRN PRN PO CONSTIPATION; Start 08/02/20 at 06:00; Stop 08/03/20 at 05:59; Status DC Bisacodyl (Dulcolax Supp) 10 mg 1X PRN PRN [place] CONSTIPATION; Start 08/02/20 at 16:00; Stop 08/03/20 at 15:59; Status DC Dextrose (Dextrose 50%-Water Syringe) 12.5 gm PRN Q15MIN PRN IV SEE COMMENTS; Start 08/01/20 at 16:00 Cefazolin Sodium/ Dextrose 50 ml @ 100 mls/hr Q6H IV Last administered on 08/02/20at 09:04; Start 08/01/20 at 21:00; Stop 08/02/20 at 09:29; Status DC Oxycodone/ Acetaminophen (Percocet 5/325) 1 tab PRN Q4HRS PRN PO MODERATE PAIN Last administered on 08/04/20at 09:54; Start 08/01/20 at 16:00 Acetaminophen (Tylenol) 650 mg PRN Q6HRS PRN PO MILD PAIN / TEMP > 100.3'F; Start 08/01/20 at 16:00 Oxycodone/ Acetaminophen (Percocet 5/325) 2 tab PRN Q4HRS PRN PO SEVERE PAIN Last administered on 08/03/20at 10:07; Start 08/01/20 at 16:15 Psyllium Hydrophilic Mucilloid (Metamucil Fiber Packet) 1 pkt QHS PO ; Start 08/02/20 at 21:00; Status Cancel Enoxaparin Sodium (Lovenox 40mg Syringe) 40 mg Q24H SQ Last administered on 08/03/20at 12:54; Start 08/02/20 at 12:00 Lorazepam (Ativan Inj) 1 mg PRN Q4HRS PRN IVP ANXIETY / AGITATION Last administered on 08/03/20at 06:15; Start 08/03/20 at 00:15 Diphenhydramine HCl (Benadryl) 25 mg PRN Q6HRS PRN IVP ITCHING Last administered on 08/03/20at 00:28; Start 08/03/20 at 00:30 Lorazepam (Ativan Inj) 2 mg PRN Q4HRS PRN IVP ANXIETY / AGITATION Last administered on 08/04/20at 10:25; Start 08/03/20 at 00:30 Active Scripts Active Xanax (Alprazolam) 0.25 Mg Tablet 0.25 Mg PO TID PRN PRN Lipitor (Atorvastatin Calcium) 10 Mg Tablet 1 Tab PO QHS Norvasc (Amlodipine Besylate) 10 Mg Tablet 5 Mg PO DAILY PRN Reported Keppra (Levetiracetam) 1,000 Mg Tablet 1 Tab PO BID Dilantin (Phenytoin Sodium Extended) 100 Mg Capsule 300 Mg PO HS Vital Signs Vital Signs Date Time Temp Pulse Resp B/P (MAP) Pulse Ox O2 Delivery O2 Flow Rate FiO2 08/04/20 11:00 98.2 80 18 127/66 (86) 97 Nasal Cannula 2.0 98.2 Labs Laboratory Tests Test 08/02/20 16:44 08/02/20 20:33 08/03/20 07:39 08/03/20 10:00 Glucose (Fingerstick) 95 mg/dL (70-99) 102 mg/dL (70-99) 95 mg/dL (70-99) White Blood Count 5.5 x10^3/uL (4.0-11.0) Red Blood Count 2.45 x10^6/uL (3.50-5.40) Hemoglobin 7.4 g/dL (12.0-15.5) Hematocrit 22.3 % (36.0-47.0) Mean Corpuscular Volume 91 fL (79-100) Mean Corpuscular Hemoglobin 30 pg (25-35) Mean Corpuscular Hemoglobin Concent 33 g/dL (31-37) Red Cell Distribution Width 14.8 % (11.5-14.5) Platelet Count 196 x10^3/uL (140-400) Neutrophils (%) (Auto) 60 % (31-73) Lymphocytes (%) (Auto) 22 % (24-48) Monocytes (%) (Auto) 15 % (0-9) Eosinophils (%) (Auto) 3 % (0-3) Basophils (%) (Auto) 1 % (0-3) Neutrophils # (Auto) 3.3 x10^3/uL (1.8-7.7) Lymphocytes # (Auto) 1.2 x10^3/uL (1.0-4.8) Monocytes # (Auto) 0.9 x10^3/uL (0.0-1.1) Eosinophils # (Auto) 0.2 x10^3/uL (0.0-0.7) Basophils # (Auto) 0.0 x10^3/uL (0.0-0.2) Sodium Level 141 mmol/L (136-145) Potassium Level 4.0 mmol/L (3.5-5.1) Chloride Level 106 mmol/L (98-107) Carbon Dioxide Level 27 mmol/L (21-32) Anion Gap 8 (6-14) Blood Urea Nitrogen 9 mg/dL (7-20) Creatinine 0.8 mg/dL (0.6-1.0) Estimated GFR (Cockcroft-Gault) 69.0 Glucose Level 86 mg/dL (70-99) Calcium Level 8.1 mg/dL (8.5-10.1) Test 08/03/20 11:39 08/03/20 16:31 08/03/20 20:34 08/04/20 07:33 Glucose (Fingerstick) 103 mg/dL (70-99) 84 mg/dL (70-99) 79 mg/dL (70-99) 68 mg/dL (70-99) Test 08/04/20 11:36 Glucose (Fingerstick) 95 mg/dL (70-99) Laboratory Tests Test 08/03/20 16:31 08/03/20 20:34 08/04/20 07:33 08/04/20 11:36 Glucose (Fingerstick) 84 mg/dL (70-99) 79 mg/dL (70-99) 68 mg/dL (70-99) 95 mg/dL (70-99) Allergies Allergies Coded Allergies Type Severity Reaction Last Updated Verified No Known Drug Allergies 10/11/14 No Disposition/Orders: Other (D/C TO SNF ) Justicifation of Admission Dx: Justifications for Admission: Justification of Admission Dx: Yes CINDY HURT MD Aug 04, 2020 13:03
[2020-08-04] MEDS ORDERED: OXYC1TAB15 PO (13:07)
[2020-08-04] MEDS ORDERED: MULT1TAB90 PO (13:07)
[2020-08-04] MEDS ORDERED: SENN-22 PO (13:07)
[2020-08-04] MEDS ORDERED: POLY17PO28 PO (13:07)
[2020-08-04] MEDS ORDERED: CHOL10003 PO (13:07)
--- NOTE | 2020-08-04 13:09 | SNU/HH DC ---
DISCHARGE ORDERS DISCHARGE INFORMATION: FINAL DIAGNOSIS Problems Medical Problems: (1) Fall Status: Acute (2) Humerus distal fracture Status: Acute CONDITION ON DISCHARGE: Stable CODE STATUS: Code Status: Full FDC: SNF STAY <30 DAYS: Yes HOSPICE: HOSPICE: No HOSPICE EVAL & TREAT: No LTAC: ADMIT TO LTAC: No POST DISCHARGE ORDERS: ACTIVITY ORDERS: No restrictions, Activity as tolerated WEIGHT BEARING STATUS: No restrictions DIET AFTER DISCHARGE: Cardiac CHECKS AFTER DISCHARGE: CHECKS AFTER DISCHARGE: Check blood press - daily FOLLOW-UP: PHYSICIAN FOLLOW-UP: ORTHO SOON DIRECTED ADDITIONAL FOLLOW-UP: PCP AT SNF 2-3 DAYS TREATMENT/EQUIPMENT ORDERS: ADAPTIVE EQUIPMENT NEEDED: Commode, Front wheeled walker Physical Therapy For: Evalulation/Treatment Occupational Therapy For: Evaluation/Treatment Speech Language Pathology For: Evaluation/Treatment DISCHARGE MEDICATIONS: Home Meds Active Scripts Multivits,Ca,Minerals/Iron/Fa (THERA-M TABLET) 1 Each Tablet, 1 TAB PO DAILY for SUPPLEMENT for 30 Days, #30 TAB Prov:CINDY HURT MD 08/04/20 Cholecalciferol (Vitamin D3) (Vitamin D3) 25 Mcg Tablet, 1000 UNIT PO DAILY for BONE HEALTH for 30 Days, #30 TAB Prov:CINDY HURT MD 08/04/20 Sennosides/Docusate Sodium (SENNA-TIME S TABLET) 1 Each Tablet, 1 TAB PO DAILY for CONSTIPATION for 14 Days, #14 TAB Prov:CINDY HURT MD 08/04/20 Polyethylene Glycol 3350 (POLYETHYLENE GLYCOL 3350) 17 Gm Powd.pack, 17 GM PO PRN DAILY PRN for CONSTIPATION for 14 Days, #14 PKT Prov:CINDY HURT MD 08/04/20 Oxycodone/Apap 5-325 (PERCOCET 5-325 MG TABLET ) 1 Each Tablet, 2 TAB PO PRN Q4HRS PRN for SEVERE PAIN for 10 Days, #30 TAB Prov:CINDY HURT MD 08/04/20 Alprazolam (XANAX) 0.25 Mg Tablet, 0.25 MG PO TID PRN PRN for ANXIETY / AGITATION, #30 TAB 0 Refills Prov:OG GLEASON MD 05/16/16 Atorvastatin Calcium (LIPITOR) 10 Mg Tablet, 1 TAB PO QHS for High cholesterol, #90 TAB 1 Refill Prov:LUCA SIERRA MD 06/17/15 Amlodipine Besylate (NORVASC) 10 Mg Tablet, 5 MG PO DAILY PRN for High blood pressure, #30 TAB 3 Refills Prov:LUCA SIERRA MD 06/17/15 Reported Medications Levetiracetam (KEPPRA) 1,000 Mg Tablet, 1 TAB PO BID, #60 TAB 5 Refills 06/15/15 Phenytoin Sodium Extended (DILANTIN) 100 Mg Capsule, 300 MG PO HS, CAP 10/11/14 CINDY HURT MD Aug 04, 2020 13:09
[2020-08-04 15:16] VITALS: BP 135/60
[2020-08-04 19:00] VITALS: BP 129/76
--- NOTE | 2020-08-04 20:30 | NUR ---
Patient DC home in stable condition with belongings per transfer service. Report called by previous RN.
== END 2020-08-04 20:30 | DRG 492 ==
LOC: ER 02:04 → 5 NORTH 05:54
PROVIDERS: ADMIT Internal Medicine; ATTEND Internal Medicine
PROC: 0PSG04Z Reposition Left Humeral Shaft with Internal Fixation Device, Open Approach (ICD-10-PCS; principal; 2020-08-01 14:00)
DX: S42.342A Displaced spiral fracture of shaft of humerus, left arm, initial encounter for closed fracture (principal); U07.1 COVID-19; S42.402A Unspecified fracture of lower end of left humerus, initial encounter for closed fracture; D63.8 Anemia in other chronic diseases classified elsewhere; I10 Essential (primary) hypertension; R56.9 Unspecified convulsions; W01.0XXA Fall on same level from slipping, tripping and stumbling without subsequent striking against object, initial encounter; Z82.49 Family history of ischemic heart disease and other diseases of the circulatory system; M19.90 Unspecified osteoarthritis, unspecified site; Y93.89 Activity, other specified; Y92.89 Other specified places as the place of occurrence of the external cause; Y99.8 Other external cause status
CPT/HCPCS: 36415; 73060; 76000; 80048; 82306; 82962; 83540; 83550; 84443; 85025; 87426; 99285; A4565; C1713; J0690; J1100; J1200; J1650; J2060; J2370; J2405; J2704; J3010; J3370; J3490; J7030; U0003; 97530-GP; 97535-GO; G0378